=== PATIENT | male | born 1995 | race Caucasian/White ===

== ENCOUNTER 2023-11-30 18:24 | Inpatient (IN) | payer OTHER, SELFPAY ==
[2023-11-30 18:32] VITALS: BP 147/99; PULSE 85; O2SAT 100
[2023-11-30 18:35] VITALS: BP 148/83; PULSE 91; RESP 18; TEMP 36.8; O2SAT 96; BMI 34.5
[2023-11-30 19:56] LABS: MANUAL DIFF FLAG NO
[2023-11-30 19:58] LABS: Basophils Absolute Auto 0.1 X10*3/uL (0.0-0.2); Basophils Percent Auto 0.5 % (0-2); Eosinophils Absolute Auto 0.2 X10*3/uL (0.0-0.4); Eosinophils Percent Auto 1.7 % (0-4); Hematocrit 46.5 % (42.0-52.0); Hemoglobin 15.7 g/dl (14.0-18.0); Imm Gran Abs Auto 0.03 X10*3/uL (0.00-0.03); Imm Gran Pct Auto 0.3 % (0.0-0.4); Lymphocytes Absolute Auto 2.2 X10*3/uL (1.2-4.9); Lymphocytes Percent Auto 23.6 % (20-40); Mean Corpuscular HGB Conc 33.8 g/dl (31.0-36.0); Mean Corpuscular Hemoglobin 28.9 pg (27.0-33.0); Mean Corpuscular Volume 85.5 fL (80.0-98.0); Mean Platelet Volume 11.4 fL (9.4-12.4); Monocytes Absolute Auto 0.7 X10*3/uL (0.1-1.2); Monocytes Percent Auto 7.2 % (2-11); Neutrophils Absolute Auto 6.3 x10*3/uL (2.0-8.3); Neutrophils Percent Auto 66.7 % (45-73); Platelet Count 276 X10*3/uL (160-400); Red Blood Count 5.44 X10*6/uL (4.60-5.80); White Blood Count 9.5 X10*3/uL (4.8-10.8)
[2023-11-30 19:59] LABS: Appearance Urine Clear; Color Urine Yellow; Glucose Urine UA Negative (Negative); Leukocyte Esterase Urine Negative (Negative); Nitrite Urine Negative (Negative); Specific Gravity - Urine 1.015 (1.005-1.025); Urine Blood Negative (Negative); Urine Ketones Negative (Negative); Urine Protein Negative (Neg-Trace)
[2023-11-30 20:07] LABS: Amphetamine Screen Urine Not Detected (Not Detect); Barbiturates, Urine Not Detected (Not Detect); Benzodiazepines Screen Urine Not Detected (Not Detect); Cannabinoid Screen Urine Not Detected (Not Detect); Cocaine Screen Urine Not Detected (Not Detect); Fentanyl, urine Not Detected (Not Detect); Opiate Screen Urine Not Detected (Not Detect); Phencyclidine Screen Urine Not Detected (Not Detect)
[2023-11-30 20:11] LABS: Alanine Aminotransferase 36 U/L (0-40); Albumin Level 4.2 g/dL (3.5-5.0); Alkaline Phosphatase 46 U/L (39-117); Anion Gap 13 (12-20); Aspartate Amino Transferase 23 U/L (5-37); Bilirubin Total 0.5 mg/dL (0.0-1.0); Blood Urea Nitrogen 15 mg/dL (9-16); Calcium 9.4 mg/dL (8.4-10.2); Carbon Dioxide 29 mmol/L (22-29); Chloride 101 mmol/L (96-108); Creatinine Clr Calc Pharmacy 124.7; Estimated Glomerular Filt Rate > 60; Ethanol < 10 mg/dL; Glucose Random 89 mg/dL (60-115); Potassium 3.9 mmol/L (3.3-5.1); Sodium 139 mmol/L (135-145); Total Protein 7.5 g/dL (6.5-8.0)
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
[2023-11-30 22:08] VITALS: BP 127/71; PULSE 74; RESP 16; TEMP 36.6; O2SAT 98
--- NOTE | 2023-11-30 23:26 | PC.NURSE ---
nicotine patch and ativan offered, pt declines at this time.
--- NOTE | 2023-12-01 03:54 | PC.NURSE ---
Assumed care for pt. Pt sleeping at the bedside. No apparent distress noted. Breaths are even regular and unlabored with equal chest rises. Plan of care is ongoing.
[2023-12-01 04:12] VITALS: BP 114/61; PULSE 72; RESP 16; TEMP 36.8; O2SAT 95
--- NOTE | 2023-12-01 07:49 | PC.NURSE ---
Alert and responsive, oob standing next to bed, denies pain or discomfort
--- NOTE | 2023-12-01 07:53 | PC.NURSE ---
Denies SI/HI
[2023-12-01 07:55] VITALS: BP 135/72; PULSE 82; RESP 18; TEMP 36.8; O2SAT 96
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
--- NOTE | 2023-12-01 10:23 | PC.NURSE ---
Assumed care of pt from previous RN, pt sitting at the end of the stretcher. Awaiting CARE team eval.
[2023-12-01] MEDS: hydrOXYzine HCL 50 MG TABLET PO (13:10)
--- NOTE | 2023-12-01 13:23 | PC.NURSE ---
Pt agreeable to taking atarax and staying for admission.
[2023-12-01 13:56] LABS: COVID-19 Test Negative (Negative); IDNOW Serial# 9DB6401D
--- NOTE | 2023-12-01 14:20 | PC.NURSE ---
Report given to Renita STANFORD in POD.
[2023-12-01 15:01] VITALS: RESP 14
--- NOTE | 2023-12-01 15:52 | MHC.EDTECH ---
BELONGINGS MOVED FROM LOCKER #11 TO #5
--- NOTE | 2023-12-01 17:22 | PC.NURSE ---
RE: med rec This RN completed medication rec, patient verbalizes that he is no longer prescribed any medications
--- NOTE | 2023-12-01 17:23 | PC.NURSE ---
Pt moved from ED 6H to 5, patient has been calm and cooperative while in the pod. Offering no complaints to this RN, unwilling to engage in extensive conversation. Now sleeping, respirations even and unlabored, skin pwd, no apparent distress
[2023-12-01 20:29] VITALS: RESP 14
--- NOTE | 2023-12-01 20:30 | PC.NURSE ---
Pt took a hour long nap, then ate dinner. Now ambulating independently throughout BH pod, offering no complaints to this RN
[2023-12-01 23:34] VITALS: BP 123/80; PULSE 74; TEMP 36.6; O2SAT 96
[2023-12-02 09:01] VITALS: BP 108/53; PULSE 78; RESP 16; TEMP 36.6; O2SAT 98
--- NOTE | 2023-12-02 12:44 | PC.NURSE ---
Assumed care of patient at 1100, patient is ambulating with steady gait around BH pod without issue. Occasionally conversing with other patients and staff members. Calm and cooperative, appropriate behavior without issue. pt verbalizes understanding of plan of care. Continue plan for IPLOC
--- NOTE | 2023-12-02 12:52 | MHC.CARE ---
CARE Team faxed letter to [place] [address] [place], with Pts verbal consent as Pt has a court date 12/03/23
[2023-12-02 14:15] VITALS: BP 118/79; PULSE 92; TEMP 36.7; O2SAT 92
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
--- NOTE | 2023-12-02 15:51 | PC.NURSE ---
Pt refused flu vaccine & tobacco screening at this time
[2023-12-02 19:45] VITALS: BP 122/67; PULSE 81; RESP 16; TEMP 36.9; O2SAT 96
[2023-12-03 07:46] VITALS: BMI 33.1
[2023-12-03 07:50] VITALS: BP 125/71; PULSE 76; RESP 18; TEMP 36.1; O2SAT 97
[2023-12-03 08:21] LABS: Estimated Average Glucose 94 mg/dL; Hemoglobin A1c % 4.9 % (<6.0)
[2023-12-03 08:34] LABS: Cholesterol 143 mg/dL (<200); HDL Cholesterol 32 mg/dL (>40); LDL Cholesterol Calculated 86 mg/dL (<100); Triglycerides 126 mg/dL (<150)
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
[2023-12-03 08:51] LABS: Free T4 (Free Thyroxine) 1.13 ng/dL (0.71-1.85); Thyroid Stimulating Hormone 0.91 uIU/mL (0.32-4.0)
[2023-12-03 09:04] LABS: Folate 8.6 ng/mL (> or = 4.0); Vitamin B12 402 pg/mL (200-900)
[2023-12-03 19:45] VITALS: BP 137/88; PULSE 95; RESP 18; TEMP 36.4; O2SAT 98
[2023-12-04 07:00] VITALS: BMI 33.3
[2023-12-04 07:35] VITALS: BP 111/57; PULSE 74; RESP 16; TEMP 36.6; O2SAT 97
[2023-12-04] MEDS: hydrOXYzine HCL 25 MG TABLET PO (14:29)
--- NOTE | 2023-12-04 15:33 | HO.PSYCHPN ---
Subjective Subjective Date of Service: 12/04/23 Reason For Visit: psychosis Interim History: calm, cooperative. superficially normal MSE. interested in therapy referral. asked who MD was at end of interview and shook MD's hand, saying nice to meet you, despite the fact that we met yesterday and spent a substantial amount of time together. per staff, flat/withdrawn. guarded. social with female peer, redirected away from her due to boundary crossings. Mental Status Exam Mental Status Exam Narrative: calm, cooperative. adequately dressed and groomed. no PMA/PMR. speech nml rate, amount, loudness, latency. thoughts superficially linear. affect flexible, normo-intense, non-labile. mood steady. positive. good. no SI/SIBI/HI/AVH expressed. Diagnostics Vital Signs (24Hr): Vital Signs - 24 hr 12/03/23 19:45 12/04/23 07:35 Temperature 97.6 F 98 F Pulse Rate 95 74 Respiratory Rate 18 16 Blood Pressure 137/88 111/57 L Pulse Oximetry 98 97 Oxygen Delivery Method Room Air Room Air BMI result Body Mass Index 33.3 Labs 11/30/23 19:52 11/30/23 19:52 Labs: Laboratory Results - last 48 hr 12/03/23 08:04 Estimat Average Glucose 94 Hemoglobin A1c % 4.9 Triglycerides 126 Cholesterol 143 LDL Cholesterol, Calc 86 HDL Cholesterol 32 L Vitamin B12 402 Folate 8.6 TSH 0.91 Free T4 1.13 Medications Medications Current Medications Acetaminophen (Acetaminophen 325 Mg Tablet) 650 mg PO Q6H PRN PRN Reason: Headache/Pain Mild Scale (1-3) Al Hydroxide/Mg Hydroxide (Magnesium Hydrox/Alum Hydrox 30 Ml Oral.Susp) 30 ml PO Q6H PRN PRN Reason: Heartburn/Nausea Hydroxyzine HCl (Hydroxyzine Hcl 25 Mg Tablet) 25 mg PO Q6H PRN PRN Reason: Anxiety Last Admin: 12/04/23 14:29 Dose: 25 mg Magnesium Hydroxide (Milk Of Magnesia 30 Ml Oral.Susp) 30 ml PO DAILY PRN PRN Reason: Constipation Nicotine Polacrilex (Nicotine Polacrilex 2 Mg Gum) 4 mg BUCCAL Q2H PRN PRN Reason: Nicotine Cravings Trazodone HCl (Trazodone Hcl 50 Mg Tablet) 50 mg PO BEDTIME MRX1 PRN PRN Reason: Insomnia Allergies Allergies Allergy/AdvReac Type Severity Reaction Status Date / Time No Known Allergies Allergy Verified 11/30/23 18:52 Assessment & Plan Assessment & Plan (1) Delusions: Status: Acute Code(s): F22 - Delusional disorders Plan appears to have some kind of psychotic disorder, perhaps with bipolar diathesis. declining medications. states he is benefiting from staff contacts and groups. will collect collateral as possible, build rapport for now. Reason for continued inpatient stay Substantial Risk for: inability to function Time Spent With Patient Time: Total time managing care of this patient today ____ minutes.
[2023-12-04 18:00] VITALS: BP 130/57; PULSE 80; RESP 18; TEMP 36.4; O2SAT 97
[2023-12-05 07:35] VITALS: BP 134/73; PULSE 72; RESP 16; TEMP 36.2; O2SAT 99
--- NOTE | 2023-12-05 09:10 | HO.PSYCHPN ---
Subjective Subjective Date of Service: 12/05/23 Reason For Visit: psychosis Subjective Notes: Conditional Voluntary Interim History: Reviewed with . Social with peers. guarded during 1:1. Pt reports feeling pretty good ; pt stated, I'm trying to take thing from here and then implement them into my life. I'm not interested in meds . denies SI/HI. Attending Groups: Yes Review of Systems Constitutional: Reports as per HPI Eyes: Reports as per HPI Reports as per HPI Cardiovascular: Reports as per HPI Respiratory: Reports as per HPI Gastrointestinal: Reports as per HPI Genitourinary: Reports as per HPI Musculoskeletal: Reports as per HPI Skin/Breast: Reports as per HPI Reports as per HPI Psychiatric: Reports as per HPI Endocrine: Reports as per HPI Hematologic/Lymphatic: Reports as per HPI Allergic/Immunologic: Reports as per HPI Mental Status Exam Mental Status Exam Narrative: Pt is alert and oriented; behavior is calm, guarded; dressed in casual attire; mood is described as good ; eye contact appropriate; Speech is normal rate, volume and prosody and not pressured; thought process is organized; Thought content is on tx; denies SI/HI/VH/AH. Diagnostics Vital Signs (24Hr): Vital Signs - 24 hr 12/04/23 18:00 12/05/23 07:35 Temperature 97.5 F 97.2 F Pulse Rate 80 72 Respiratory Rate 18 16 Blood Pressure 130/57 L 134/73 Pulse Oximetry 97 99 Oxygen Delivery Method Room Air Room Air BMI result Body Mass Index 33.3 Labs 11/30/23 19:52 11/30/23 19:52 Medications Medications Current Medications Acetaminophen (Acetaminophen 325 Mg Tablet) 650 mg PO Q6H PRN PRN Reason: Headache/Pain Mild Scale (1-3) Al Hydroxide/Mg Hydroxide (Magnesium Hydrox/Alum Hydrox 30 Ml Oral.Susp) 30 ml PO Q6H PRN PRN Reason: Heartburn/Nausea Hydroxyzine HCl (Hydroxyzine Hcl 25 Mg Tablet) 25 mg PO Q6H PRN PRN Reason: Anxiety Last Admin: 12/04/23 14:29 Dose: 25 mg Magnesium Hydroxide (Milk Of Magnesia 30 Ml Oral.Susp) 30 ml PO DAILY PRN PRN Reason: Constipation Nicotine Polacrilex (Nicotine Polacrilex 2 Mg Gum) 4 mg BUCCAL Q2H PRN PRN Reason: Nicotine Cravings Trazodone HCl (Trazodone Hcl 50 Mg Tablet) 50 mg PO BEDTIME MRX1 PRN PRN Reason: Insomnia Allergies Allergies Allergy/AdvReac Type Severity Reaction Status Date / Time No Known Allergies Allergy Verified 11/30/23 18:52 Assessment & Plan Assessment & Plan (1) Delusions: Status: Acute Code(s): F22 - Delusional disorders Plan appears to have some kind of psychotic disorder, perhaps with bipolar diathesis. declining medications. states he is benefiting from staff contacts and groups. will collect collateral as possible, build rapport for now. 12/05: Social with peers. guarded during 1:1. Pt reports feeling pretty good ; pt stated, I'm trying to take thing from here and then implement them into my life. I'm not interested in meds . denies SI/HI. Patient educated on: diagnosis and medication risk/benefits Informed Consent: understands Reason for continued inpatient stay Substantial Risk for: med/psych decompensation Time Spent With Patient Time: Total time managing care of this patient today _20___ minutes.
[2023-12-05 19:45] VITALS: BP 136/82; PULSE 87; RESP 17; TEMP 36.7; O2SAT 96
[2023-12-06 08:00] VITALS: BP 117/70; PULSE 67; RESP 14; TEMP 35.9; O2SAT 96
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
[2023-12-06 19:25] VITALS: BP 138/83; PULSE 92; RESP 18; TEMP 36.6; O2SAT 98
[2023-12-07 07:10] VITALS: BP 130/70; PULSE 69; RESP 14; TEMP 36.3; O2SAT 98
--- NOTE | 2023-12-07 07:54 | HO.PSYCHPN ---
Subjective Subjective Date of Service: 12/07/23 Reason For Visit: psychosis Subjective Notes: Conditional Voluntary Interim History: Patient was seen and discussed in rounds today. Records and plans were reviewed. He continues to refuse any medications because they have not ?help me before?. He can interact very differently with the same person within a short period of time and have very little insight or understanding of his behaviors. He slept 6 hours. Eating adequately. He continues to be disinterested in medications. Review of Systems Review of Systems Yes all other systems are reviewed and are negative Mental Status Exam Mental Status Exam Patient Appearance: Well Grooomed Patient Orientation: Place, Time and Situation Level of Consciousness: Alert Patient Behavior: Guarded Mood Description: Suspicious Affect Description: Suspicious and Anxious Patient Cognition Impaired: No Ability to Follow Directions: Good Memory Description: Intact Hallucinations: None Delusions: Paranoid Ideation Thought Process: Intact Thought Content: positive for Evasive Depressive Symptoms: Increased Anxiety and Insomnia Judgement: Fair Diagnostics Vital Signs (24Hr): Vital Signs - 24 hr 12/06/23 08:00 12/06/23 19:25 Temperature 96.6 F L 97.8 F Pulse Rate 67 92 Respiratory Rate 14 18 Blood Pressure 117/70 138/83 Pulse Oximetry 96 98 Oxygen Delivery Method Room Air Room Air BMI result Body Mass Index 33.3 Labs 11/30/23 19:52 11/30/23 19:52 Medications Medications Current Medications Acetaminophen (Acetaminophen 325 Mg Tablet) 650 mg PO Q6H PRN PRN Reason: Headache/Pain Mild Scale (1-3) Al Hydroxide/Mg Hydroxide (Magnesium Hydrox/Alum Hydrox 30 Ml Oral.Susp) 30 ml PO Q6H PRN PRN Reason: Heartburn/Nausea Hydroxyzine HCl (Hydroxyzine Hcl 25 Mg Tablet) 25 mg PO Q6H PRN PRN Reason: Anxiety Last Admin: 12/04/23 14:29 Dose: 25 mg Magnesium Hydroxide (Milk Of Magnesia 30 Ml Oral.Susp) 30 ml PO DAILY PRN PRN Reason: Constipation Nicotine Polacrilex (Nicotine Polacrilex 2 Mg Gum) 4 mg BUCCAL Q2H PRN PRN Reason: Nicotine Cravings Trazodone HCl (Trazodone Hcl 50 Mg Tablet) 50 mg PO BEDTIME MRX1 PRN PRN Reason: Insomnia Allergies Allergies Allergy/AdvReac Type Severity Reaction Status Date / Time No Known Allergies Allergy Verified 11/30/23 18:52 Assessment & Plan Assessment & Plan (1) Delusions: Status: Acute Code(s): F22 - Delusional disorders Assessment and Plan: Encourage trial of antipsychotic. Monitor sleep. Monitor interactions in the milieu Plan appears to have some kind of psychotic disorder, perhaps with bipolar diathesis. declining medications. states he is benefiting from staff contacts and groups. will collect collateral as possible, build rapport for now. 12/05: Social with peers. guarded during 1:1. Pt reports feeling pretty good ; pt stated, I'm trying to take thing from here and then implement them into my life. I'm not interested in meds . denies SI/HI. 12/07: Continue current plans and regimen and encouraged about medications which he is closed off to. Patient educated on: medication risk/benefits Reason for continued inpatient stay Substantial Risk for: med/psych decompensation Time Spent With Patient Time: Total time managing care of this patient today ____ minutes.
[2023-12-07 20:50] VITALS: BP 127/77; PULSE 85; RESP 18; TEMP 36.5; O2SAT 96
[2023-12-07] MEDS: hydrOXYzine HCL 25 MG TABLET PO (22:11)
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
[2023-12-08 07:20] VITALS: BP 112/69; PULSE 80; RESP 18; TEMP 36.4; O2SAT 99
[2023-12-08] MEDS: Nicotine Polacrilex 2 MG GUM 4 MG BUCCAL (10:18)
[2023-12-08] MEDS: hydrOXYzine HCL 25 MG TABLET PO (11:02)
--- NOTE | 2023-12-08 16:04 | HO.PSYCHPN ---
Subjective Subjective Date of Service: 12/08/23 Reason For Visit: psychosis Interim History: pt agreed to start meds, after a very long and circuitous conversation. he declined medication when it was offered within about an hour of his agreeing to it. per staff, friday was saying people are trying to kill him. friday agitated and needed redirection from threatening male peers. overheard telling a peer, it's not a threat, it's a promise. feeling people are out to kill him. they're ganging up on me. open to trying medication after discussion with ABDOULAYE Figueroa, with purpose to organize thoughts. threatening to break peoples' arms. slept about 7 hours. Mental Status Exam Mental Status Exam Narrative: calm, cooperative. adequately dressed and groomed. no PMA/PMR. speech nml rate, incr amount, nml loudness, decr latency. thoughts generally vague and tangential. affect flexible, normo-intense, non-labile. mood not assessed. no SI/SIBI/HI/AVH expressed. Diagnostics Vital Signs (24Hr): Vital Signs - 24 hr 12/07/23 20:50 12/08/23 07:20 Temperature 97.7 F 97.5 F Pulse Rate 85 80 Respiratory Rate 18 18 Blood Pressure 127/77 112/69 Pulse Oximetry 96 99 Oxygen Delivery Method Room Air Room Air BMI result Body Mass Index 33.3 Labs 11/30/23 19:52 11/30/23 19:52 Medications Medications Current Medications Acetaminophen (Acetaminophen 325 Mg Tablet) 650 mg PO Q6H PRN PRN Reason: Headache/Pain Mild Scale (1-3) Al Hydroxide/Mg Hydroxide (Magnesium Hydrox/Alum Hydrox 30 Ml Oral.Susp) 30 ml PO Q6H PRN PRN Reason: Heartburn/Nausea Hydroxyzine HCl (Hydroxyzine Hcl 25 Mg Tablet) 25 mg PO Q6H PRN PRN Reason: Anxiety Last Admin: 12/08/23 11:02 Dose: 25 mg Magnesium Hydroxide (Milk Of Magnesia 30 Ml Oral.Susp) 30 ml PO DAILY PRN PRN Reason: Constipation Nicotine Polacrilex (Nicotine Polacrilex 2 Mg Gum) 4 mg BUCCAL Q2H PRN PRN Reason: Nicotine Cravings Last Admin: 12/08/23 10:18 Dose: 4 mg Olanzapine (Olanzapine 10 Mg Tablet) 10 mg PO BEDTIME FRANKIE Trazodone HCl (Trazodone Hcl 50 Mg Tablet) 50 mg PO BEDTIME MRX1 PRN PRN Reason: Insomnia Allergies Allergies Allergy/AdvReac Type Severity Reaction Status Date / Time No Known Allergies Allergy Verified 11/30/23 18:52 Assessment & Plan Assessment & Plan (1) Delusions: Status: Acute Code(s): F22 - Delusional disorders Assessment and Plan: Encourage trial of antipsychotic. Monitor sleep. Monitor interactions in the milieu Plan appears to have some kind of psychotic disorder, perhaps with bipolar diathesis. declining medications. states he is benefiting from staff contacts and groups. will collect collateral as possible, build rapport for now. 12/05: Social with peers. guarded during 1:1. Pt reports feeling pretty good ; pt stated, I'm trying to take thing from here and then implement them into my life. I'm not interested in meds . denies SI/HI. 12/07: Continue current plans and regimen and encouraged about medications which he is closed off to. 12/08: agreed to take meds to help organize thoughts, then declined an hour later claiming the person with whom he'd discussed meds had told him to hold off until tomorrow. olanzapine 10 mg QHS prescribed. remains disorganized and vague. Reason for continued inpatient stay Substantial Risk for: harm to self, harm to others, inability to function and rapid decompensation Time Spent With Patient Time: Total time managing care of this patient today __35__ minutes.
[2023-12-08 19:50] VITALS: BP 103/62; PULSE 85; RESP 16; TEMP 36.5; O2SAT 98
[2023-12-09 08:19] VITALS: BP 125/81; PULSE 78; RESP 16; TEMP 36.5; O2SAT 98
[2023-12-09] MEDS: OLANZapine 2.5 MG TABLET PO (11:23)
--- NOTE | 2023-12-09 14:54 | HO.PSYCHPN ---
Subjective Subjective Date of Service: 12/09/23 Reason For Visit: psychosis Interim History: vague, circumlocutory. paranoid of peers, father. delusional. informed we would be discharging him tomorrow if he were not to engage in pharmacoptherapy, as otherwise we have come to the end of the help we can offer him. per staff, no depression, anx 5. paranoia. attended 1 group yesterday. refused both doses of zyprexa yesterday. slept about 8 hours overnight. Mental Status Exam Mental Status Exam Narrative: calm, cooperative. adequately dressed and groomed. no PMA/PMR. speech nml rate, incr amount, nml loudness, decr latency. thoughts generally vague and tangential, disorganized. affect flexible, normo-intense, non-labile. mood not bad. no SI/SIBI/HI/AVH. Diagnostics Vital Signs (24Hr): Vital Signs - 24 hr 12/08/23 19:50 12/09/23 08:19 Temperature 97.7 F 97.7 F Pulse Rate 85 78 Respiratory Rate 16 16 Blood Pressure 103/62 125/81 Pulse Oximetry 98 98 Oxygen Delivery Method Room Air Room Air BMI result Body Mass Index 33.3 Labs 11/30/23 19:52 11/30/23 19:52 Medications Medications Current Medications Acetaminophen (Acetaminophen 325 Mg Tablet) 650 mg PO Q6H PRN PRN Reason: Headache/Pain Mild Scale (1-3) Al Hydroxide/Mg Hydroxide (Magnesium Hydrox/Alum Hydrox 30 Ml Oral.Susp) 30 ml PO Q6H PRN PRN Reason: Heartburn/Nausea Hydroxyzine HCl (Hydroxyzine Hcl 25 Mg Tablet) 25 mg PO Q6H PRN PRN Reason: Anxiety Last Admin: 12/08/23 11:02 Dose: 25 mg Magnesium Hydroxide (Milk Of Magnesia 30 Ml Oral.Susp) 30 ml PO DAILY PRN PRN Reason: Constipation Nicotine Polacrilex (Nicotine Polacrilex 2 Mg Gum) 4 mg BUCCAL Q2H PRN PRN Reason: Nicotine Cravings Last Admin: 12/08/23 10:18 Dose: 4 mg Olanzapine (Olanzapine 10 Mg Tablet) 10 mg PO BEDTIME FRANKIE Last Admin: 12/08/23 22:23 Dose: Not Given Trazodone HCl (Trazodone Hcl 50 Mg Tablet) 50 mg PO BEDTIME MRX1 PRN PRN Reason: Insomnia Allergies Allergies Allergy/AdvReac Type Severity Reaction Status Date / Time No Known Allergies Allergy Verified 11/30/23 18:52 Assessment & Plan Assessment & Plan (1) Delusions: Status: Acute Code(s): F22 - Delusional disorders Assessment and Plan: Encourage trial of antipsychotic. Monitor sleep. Monitor interactions in the milieu Plan appears to have some kind of psychotic disorder, perhaps with bipolar diathesis. declining medications. states he is benefiting from staff contacts and groups. will collect collateral as possible, build rapport for now. 12/05: Social with peers. guarded during 1:1. Pt reports feeling pretty good ; pt stated, I'm trying to take thing from here and then implement them into my life. I'm not interested in meds . denies SI/HI. 12/07: Continue current plans and regimen and encouraged about medications which he is closed off to. 12/08: agreed to take meds to help organize thoughts, then declined an hour later claiming the person with whom he'd discussed meds had told him to hold off until tomorrow. olanzapine 10 mg QHS prescribed. remains disorganized and vague. 12/09: refused HS zyprexa last night, took zyprexa 2.5 mg this morning. aware of plan to discharge tomorrow if not engaging in pharmacotherapy. no change in presentation. paranoid delusions. Reason for continued inpatient stay Substantial Risk for: inability to function and rapid decompensation Time Spent With Patient Time: Total time managing care of this patient today _35___ minutes.
--- NOTE | 2023-12-09 17:46 | PC.NURSE ---
Pt approached peer Joey and began to posture at peer and stating come here. come try me he later said to TW he is being a pu--y. He and the peer were .
[2023-12-09 20:10] VITALS: RESP 16
[2023-12-09] MEDS: diphenhydrAMINE HCL 50 MG/ML VIAL IM (20:15)
[2023-12-09] MEDS: LORazepam 2 MG/ML VIAL IM (20:15)
[2023-12-09] MEDS: OLANZapine 10 MG VIAL IM (20:15)
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
[2023-12-10 09:49] VITALS: BP 140/95; PULSE 90; RESP 18; TEMP 36.4; O2SAT 97
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
[2023-12-10 20:30] VITALS: BP 134/67; PULSE 95; RESP 16; TEMP 36.6; O2SAT 97
[2023-12-11 07:47] VITALS: BP 135/74; PULSE 85; RESP 16; TEMP 36.9; O2SAT 97
[2023-12-11 10:43] VITALS: BMI 33.6
[2023-12-11] MEDS: LORazepam 1 MG TABLET PO (11:36)
[2023-12-11] MEDS: OLANZapine ODT 10 MG TAB.RAPDIS TRANSLINGU (12:27)
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
[2023-12-11 20:30] VITALS: BP 122/70; PULSE 104; RESP 14; TEMP 36.5; O2SAT 97
[2023-12-12] MEDS: OLANZapine ODT 10 MG TAB.RAPDIS 20 MG TRANSLINGU (12:18)
[2023-12-12 13:33] VITALS: BP 127/64; PULSE 88; RESP 16; TEMP 37; O2SAT 96
--- NOTE | 2023-12-12 13:56 | ECG_ITS ---
Test Reason : C/O PALPITATIONS Blood Pressure : / mmHG Vent. Rate : 071 BPM Atrial Rate : 071 BPM P-R Int : 164 ms QRS Dur : 084 ms QT Int : 360 ms P-R-T Axes : 046 079 053 degrees QTc Int : 391 ms Normal sinus rhythm Normal ECG No previous ECGs available Referred By: Zeke Harris Electronically Signed By:Ventura Aranda
--- NOTE | 2023-12-12 14:01 | HO.PSYCHPN ---
Subjective Subjective Date of Service: 12/12/23 Reason For Visit: psychosis Interim History: reactive, alleging nursing staff did not offer medication at HS last night. asks if this is what we do to everyone, not offer them medications and then take them to court because they are not taking medications. MD offers to change order to be given now, and pt accepts. per staff, court next . attending groups. refused HS meds last night. slept about 6 hours overnight. Mental Status Exam Mental Status Exam Narrative: reactive, not cooperative. adequately dressed and groomed. no PMA/PMR. speech incr rate, nml amount, nml loudness, decr latency. thoughts with paranoid delusions. affect constricted, hyper-intense, mod-labile. mood not assessed. no SI/SIBI/HI/AVH expressed. Diagnostics Vital Signs (24Hr): Vital Signs - 24 hr 12/11/23 20:30 12/12/23 13:33 Temperature 97.7 F 98.6 F Pulse Rate 104 H 88 Respiratory Rate 14 16 Blood Pressure 122/70 127/64 Pulse Oximetry 97 96 Oxygen Delivery Method Room Air Room Air BMI result Body Mass Index 33.6 Labs 11/30/23 19:52 11/30/23 19:52 Medications Medications Current Medications Acetaminophen (Acetaminophen 325 Mg Tablet) 650 mg PO Q6H PRN PRN Reason: Headache/Pain Mild Scale (1-3) Al Hydroxide/Mg Hydroxide (Magnesium Hydrox/Alum Hydrox 30 Ml Oral.Susp) 30 ml PO Q6H PRN PRN Reason: Heartburn/Nausea Hydroxyzine HCl (Hydroxyzine Hcl 25 Mg Tablet) 25 mg PO Q6H PRN PRN Reason: Anxiety Last Admin: 12/08/23 11:02 Dose: 25 mg Lorazepam (Lorazepam 1 Mg Tablet) 1 mg PO Q4H PRN PRN Reason: severe agitation Last Admin: 12/11/23 11:36 Dose: 1 mg Magnesium Hydroxide (Milk Of Magnesia 30 Ml Oral.Susp) 30 ml PO DAILY PRN PRN Reason: Constipation Nicotine Polacrilex (Nicotine Polacrilex 2 Mg Gum) 4 mg BUCCAL Q2H PRN PRN Reason: Nicotine Cravings Last Admin: 12/08/23 10:18 Dose: 4 mg Olanzapine (Olanzapine Odt 10 Mg Tab.Rapdis) 10 mg TRANSLINGU Q4H PRN PRN Reason: severe agitation Olanzapine (Olanzapine Odt 10 Mg Tab.Rapdis) 20 mg TRANSLINGU DAILY@1200 FRANKIE Last Admin: 12/12/23 12:18 Dose: 20 mg Trazodone HCl (Trazodone Hcl 50 Mg Tablet) 50 mg PO BEDTIME MRX1 PRN PRN Reason: Insomnia Allergies Allergies Allergy/AdvReac Type Severity Reaction Status Date / Time No Known Allergies Allergy Verified 11/30/23 18:52 Assessment & Plan Assessment & Plan (1) Delusions: Status: Acute Code(s): F22 - Delusional disorders Assessment and Plan: Encourage trial of antipsychotic. Monitor sleep. Monitor interactions in the milieu Plan appears to have some kind of psychotic disorder, perhaps with bipolar diathesis. declining medications. states he is benefiting from staff contacts and groups. will collect collateral as possible, build rapport for now. 12/05: Social with peers. guarded during 1:1. Pt reports feeling pretty good ; pt stated, I'm trying to take thing from here and then implement them into my life. I'm not interested in meds . denies SI/HI. 12/07: Continue current plans and regimen and encouraged about medications which he is closed off to. 12/08: agreed to take meds to help organize thoughts, then declined an hour later claiming the person with whom he'd discussed meds had told him to hold off until tomorrow. olanzapine 10 mg QHS prescribed. remains disorganized and vague. 12/09: refused HS zyprexa last night, took zyprexa 2.5 mg this morning. aware of plan to discharge tomorrow if not engaging in pharmacotherapy. no change in presentation. paranoid delusions. 12/10: episode of paranoid delusion-driven provocation, escalation, and violence last evening resulting in restraint and IM meds. denies mental illness. CV revoked and moving for commitment. 12/11: filed for commitment. pt angry re filing. took olanzapine 10 mg x 1 NOW. dosing at HS increased to 20 mg. 12/12: declined HS dosing last night. once again alleged HS RNs did not offer medication. agreed to take it now, which he did, and dosing time changed to QNOON. Reason for continued inpatient stay Substantial Risk for: harm to others, inability to function and rapid decompensation Time Spent With Patient Time: Total time managing care of this patient today ____ minutes.
[2023-12-12 14:15] VITALS: BP 150/86; PULSE 103; RESP 16; O2SAT 97
--- NOTE | 2023-12-12 16:01 | HO.PSYCHPN ---
Subjective Subjective Date of Service: 12/12/23 Reason For Visit: psychosis Diagnostics Vital Signs (24Hr): Vital Signs - 24 hr 12/11/23 20:30 12/12/23 13:33 Temperature 97.7 F 98.6 F Pulse Rate 104 H 88 Respiratory Rate 14 16 Blood Pressure 122/70 127/64 Pulse Oximetry 97 96 Oxygen Delivery Method Room Air Room Air BMI result Body Mass Index 33.6 Labs 11/30/23 19:52 11/30/23 19:52 Medications Medications Current Medications Acetaminophen (Acetaminophen 325 Mg Tablet) 650 mg PO Q6H PRN PRN Reason: Headache/Pain Mild Scale (1-3) Al Hydroxide/Mg Hydroxide (Magnesium Hydrox/Alum Hydrox 30 Ml Oral.Susp) 30 ml PO Q6H PRN PRN Reason: Heartburn/Nausea Hydroxyzine HCl (Hydroxyzine Hcl 25 Mg Tablet) 25 mg PO Q6H PRN PRN Reason: Anxiety Last Admin: 12/08/23 11:02 Dose: 25 mg Lorazepam (Lorazepam 1 Mg Tablet) 1 mg PO Q4H PRN PRN Reason: severe agitation Last Admin: 12/11/23 11:36 Dose: 1 mg Magnesium Hydroxide (Milk Of Magnesia 30 Ml Oral.Susp) 30 ml PO DAILY PRN PRN Reason: Constipation Nicotine Polacrilex (Nicotine Polacrilex 2 Mg Gum) 4 mg BUCCAL Q2H PRN PRN Reason: Nicotine Cravings Last Admin: 12/08/23 10:18 Dose: 4 mg Olanzapine (Olanzapine Odt 10 Mg Tab.Rapdis) 10 mg TRANSLINGU Q4H PRN PRN Reason: severe agitation Olanzapine (Olanzapine Odt 10 Mg Tab.Rapdis) 20 mg TRANSLINGU DAILY@1200 FRANKIE Last Admin: 12/12/23 12:18 Dose: 20 mg Trazodone HCl (Trazodone Hcl 50 Mg Tablet) 50 mg PO BEDTIME MRX1 PRN PRN Reason: Insomnia Allergies Allergies Allergy/AdvReac Type Severity Reaction Status Date / Time No Known Allergies Allergy Verified 11/30/23 18:52 Assessment & Plan Assessment & Plan (1) Delusions: Status: Acute Code(s): F22 - Delusional disorders Assessment and Plan: Encourage trial of antipsychotic. Monitor sleep. Monitor interactions in the milieu Plan appears to have some kind of psychotic disorder, perhaps with bipolar diathesis. declining medications. states he is benefiting from staff contacts and groups. will collect collateral as possible, build rapport for now. 12/05: Social with peers. guarded during 1:1. Pt reports feeling pretty good ; pt stated, I'm trying to take thing from here and then implement them into my life. I'm not interested in meds . denies SI/HI. 12/07: Continue current plans and regimen and encouraged about medications which he is closed off to. 12/08: agreed to take meds to help organize thoughts, then declined an hour later claiming the person with whom he'd discussed meds had told him to hold off until tomorrow. olanzapine 10 mg QHS prescribed. remains disorganized and vague. 12/09: refused HS zyprexa last night, took zyprexa 2.5 mg this morning. aware of plan to discharge tomorrow if not engaging in pharmacotherapy. no change in presentation. paranoid delusions. 12/10: episode of paranoid delusion-driven provocation, escalation, and violence last evening resulting in restraint and IM meds. denies mental illness. CV revoked and moving for commitment. 12/11: filed for commitment. pt angry re filing. took olanzapine 10 mg x 1 NOW. dosing at HS increased to 20 mg. 12/12: declined HS dosing last night. once again alleged HS RNs did not offer medication. agreed to take it now, which he did, and dosing time changed to QNOON. Time Spent With Patient Time: Total time managing care of this patient today ____ minutes.
[2023-12-12 19:53] VITALS: BP 124/73; PULSE 104; RESP 16; TEMP 36.4; O2SAT 97
[2023-12-13 08:51] VITALS: BP 142/81; PULSE 86; RESP 18; TEMP 36.2; O2SAT 96
--- NOTE | 2023-12-13 10:54 | HO.PSYCHPN ---
Subjective Subjective Date of Service: 12/13/23 Reason For Visit: psychosis Subjective Notes: Section 7 Interim History: Pt reports he will not take olanzapine because he reports it is giving him panic attacks. He describes, heart racing, dizziness and passing out which was not observed by nursing. Pt suspect he was given rat poison and questions this leader writer as to who may be producing these medications and whether I can assure him that they are not poisoned. He reports he has very important information that others want. He suspects that one particular peer, is after him and wants his knowledge of current affairs in the world and is going after him. He reports he can't trust anybody, not even his parents who he is now questioning if they are his true biological parents. Review of Systems Review of Systems Constitutional : No Fever, No Chills ENT/Mouth : No Ear Pain, No Nasal Congestion, No sore throat Eyes: No Eye Pain, No Swelling, No Redness Cardiovascular : No Chest Pain, No SOB Respiratory : No Cough, No Sputum, No Dyspnea Gastrointestinal : No Nausea, No Vomiting, No Diarrhea, No Hematochezia, No Melena Genitourinary : No Dysuria, No Urinary Frequency, No Hematuria Musculoskeletal : No Myalgias Skin : No Skin Lesions, No rash Neuro : No Weakness, No Numbness, No Paresthesias, No Dizziness, No Headache Psych : positive Anxiety, positive Depression, no SI/HI All other systems reviewed and are negative Yes all other systems are reviewed and are negative Constitutional: Reports as per HPI Eyes: Reports as per HPI Reports as per HPI Cardiovascular: Reports as per HPI Respiratory: Reports as per HPI Gastrointestinal: Reports as per HPI Genitourinary: Reports as per HPI Musculoskeletal: Reports as per HPI Skin/Breast: Reports as per HPI Reports as per HPI Psychiatric: Reports as per HPI Endocrine: Reports as per HPI Hematologic/Lymphatic: Reports as per HPI Allergic/Immunologic: Reports as per HPI Mental Status Exam Mental Status Exam Patient Appearance: Well Grooomed Patient Orientation: Place, Time and Situation Level of Consciousness: Alert Patient Behavior: Guarded Mood Description: Suspicious Affect Description: Suspicious and Anxious Patient Cognition Impaired: No Ability to Follow Directions: Good Memory Description: Intact Diagnostics Vital Signs (24Hr): Vital Signs - 24 hr 12/12/23 13:33 12/12/23 14:15 12/12/23 19:53 Temperature 98.6 F 97.5 F Pulse Rate 88 103 H 104 H Respiratory Rate 16 16 16 Blood Pressure 127/64 150/86 H 124/73 Pulse Oximetry 96 97 97 Oxygen Delivery Method Room Air Room Air Room Air 12/13/23 08:51 Temperature 97.2 F Pulse Rate 86 Respiratory Rate 18 Blood Pressure 142/81 H Pulse Oximetry 96 Oxygen Delivery Method Room Air BMI result Body Mass Index 33.6 Labs 11/30/23 19:52 11/30/23 19:52 Medications Medications Current Medications Acetaminophen (Acetaminophen 325 Mg Tablet) 650 mg PO Q6H PRN PRN Reason: Headache/Pain Mild Scale (1-3) Al Hydroxide/Mg Hydroxide (Magnesium Hydrox/Alum Hydrox 30 Ml Oral.Susp) 30 ml PO Q6H PRN PRN Reason: Heartburn/Nausea Hydroxyzine HCl (Hydroxyzine Hcl 25 Mg Tablet) 25 mg PO Q6H PRN PRN Reason: Anxiety Last Admin: 12/08/23 11:02 Dose: 25 mg Lorazepam (Lorazepam 1 Mg Tablet) 1 mg PO Q4H PRN PRN Reason: severe agitation Last Admin: 12/11/23 11:36 Dose: 1 mg Magnesium Hydroxide (Milk Of Magnesia 30 Ml Oral.Susp) 30 ml PO DAILY PRN PRN Reason: Constipation Nicotine Polacrilex (Nicotine Polacrilex 2 Mg Gum) 4 mg BUCCAL Q2H PRN PRN Reason: Nicotine Cravings Last Admin: 12/08/23 10:18 Dose: 4 mg Olanzapine (Olanzapine Odt 10 Mg Tab.Rapdis) 10 mg TRANSLINGU Q4H PRN PRN Reason: severe agitation Olanzapine (Olanzapine Odt 10 Mg Tab.Rapdis) 20 mg TRANSLINGU DAILY@1200 FRANKIE Last Admin: 12/12/23 12:18 Dose: 20 mg Trazodone HCl (Trazodone Hcl 50 Mg Tablet) 50 mg PO BEDTIME MRX1 PRN PRN Reason: Insomnia Allergies Allergies Allergy/AdvReac Type Severity Reaction Status Date / Time No Known Allergies Allergy Verified 11/30/23 18:52 Assessment & Plan Assessment & Plan (1) Delusions: Status: Acute Code(s): F22 - Delusional disorders Plan continue tx.refuses oral zyprexa or any other antipsychotic Reason for continued inpatient stay Substantial Risk for: inability to function Time Spent With Patient Time: Total time managing care of this patient today ____ minutes.
[2023-12-13 19:16] VITALS: BP 136/75; PULSE 102; RESP 18; TEMP 36.8; O2SAT 97
[2023-12-14 06:00] VITALS: BP 134/77; PULSE 74; RESP 16; TEMP 36.1; O2SAT 99
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
[2023-12-14 19:35] VITALS: BP 149/77; PULSE 90; RESP 16; TEMP 36.6; O2SAT 96
[2023-12-15 08:57] VITALS: BP 122/76; PULSE 92; RESP 16; TEMP 36.7; O2SAT 95
[2023-12-15 20:00] VITALS: BP 158/90; PULSE 97; RESP 16; TEMP 36.3; O2SAT 100
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
[2023-12-16 07:45] VITALS: BP 130/59; PULSE 68; RESP 16; TEMP 36.6; O2SAT 97
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
[2023-12-16 20:40] VITALS: BP 121/79; PULSE 97; RESP 14; TEMP 36.8; O2SAT 96
[2023-12-17 07:39] VITALS: BP 128/72; PULSE 82; RESP 18; TEMP 36.2; O2SAT 97
--- NOTE | 2023-12-17 13:52 | HO.PSYCHPN ---
Subjective Subjective Date of Service: 12/17/23 Reason For Visit: psychosis Interim History: calm, cooperative. remains with paranoid delusions regarding his parents, denies any mental illness or use for medications. ends interview saying he is just going to get upset continuing to speak with me because i am telling him he is mentally ill while he believes he is not. per staff, dep 2/anx 2. visible, eating. refusing medications. playing cards with peers. Mental Status Exam Mental Status Exam Narrative: calm, cooperative. adequately dressed and groomed. no PMA/PMR. speech nml rate, incr amount, nml loudness, decr latency. thoughts less vague and tangential than before, but still notably imprecise and non-linear. affect constricted, normo-intense, min-labile. mood not assessed. no SI/SIBI/HI/AVH expressed. Diagnostics Vital Signs (24Hr): Vital Signs - 24 hr 12/16/23 20:40 12/17/23 07:39 Temperature 98.2 F 97.2 F Pulse Rate 97 82 Respiratory Rate 14 18 Blood Pressure 121/79 128/72 Pulse Oximetry 96 97 Oxygen Delivery Method Room Air Room Air BMI result Body Mass Index 33.6 Labs 11/30/23 19:52 11/30/23 19:52 Medications Medications Current Medications Acetaminophen (Acetaminophen 325 Mg Tablet) 650 mg PO Q6H PRN PRN Reason: Headache/Pain Mild Scale (1-3) Al Hydroxide/Mg Hydroxide (Magnesium Hydrox/Alum Hydrox 30 Ml Oral.Susp) 30 ml PO Q6H PRN PRN Reason: Heartburn/Nausea Hydroxyzine HCl (Hydroxyzine Hcl 25 Mg Tablet) 25 mg PO Q6H PRN PRN Reason: Anxiety Last Admin: 12/08/23 11:02 Dose: 25 mg Lorazepam (Lorazepam 1 Mg Tablet) 1 mg PO Q4H PRN PRN Reason: severe agitation Last Admin: 12/11/23 11:36 Dose: 1 mg Magnesium Hydroxide (Milk Of Magnesia 30 Ml Oral.Susp) 30 ml PO DAILY PRN PRN Reason: Constipation Nicotine Polacrilex (Nicotine Polacrilex 2 Mg Gum) 4 mg BUCCAL Q2H PRN PRN Reason: Nicotine Cravings Last Admin: 12/08/23 10:18 Dose: 4 mg Olanzapine (Olanzapine Odt 10 Mg Tab.Rapdis) 10 mg TRANSLINGU Q4H PRN PRN Reason: severe agitation Olanzapine (Olanzapine Odt 10 Mg Tab.Rapdis) 20 mg TRANSLINGU DAILY@1200 FRANKIE Last Admin: 12/17/23 12:17 Dose: Not Given Trazodone HCl (Trazodone Hcl 50 Mg Tablet) 50 mg PO BEDTIME MRX1 PRN PRN Reason: Insomnia Allergies Allergies Allergy/AdvReac Type Severity Reaction Status Date / Time No Known Allergies Allergy Verified 11/30/23 18:52 Assessment & Plan Assessment & Plan (1) Schizophrenia: Status: Acute Code(s): F20.9 - Schizophrenia, unspecified Plan appears to have some kind of psychotic disorder, perhaps with bipolar diathesis. declining medications. states he is benefiting from staff contacts and groups. will collect collateral as possible, build rapport for now. 12/05: Social with peers. guarded during 1:1. Pt reports feeling pretty good ; pt stated, I'm trying to take thing from here and then implement them into my life. I'm not interested in meds . denies SI/HI. 12/07: Continue current plans and regimen and encouraged about medications which he is closed off to. 12/08: agreed to take meds to help organize thoughts, then declined an hour later claiming the person with whom he'd discussed meds had told him to hold off until tomorrow. olanzapine 10 mg QHS prescribed. remains disorganized and vague. 12/09: refused HS zyprexa last night, took zyprexa 2.5 mg this morning. aware of plan to discharge tomorrow if not engaging in pharmacotherapy. no change in presentation. paranoid delusions. 12/10: episode of paranoid delusion-driven provocation, escalation, and violence last evening resulting in restraint and IM meds. denies mental illness. CV revoked and moving for commitment. 12/11: filed for commitment. pt angry re filing. took olanzapine 10 mg x 1 NOW. dosing at HS increased to 20 mg. 12/12: declined HS dosing last night. once again alleged HS RNs did not offer medication. agreed to take it now, which he did, and dosing time changed to QNOON. 12/13-12/15: refusing antipsychotics. no provocative behaviors noted. 12/16: refusing antipsychotics. appears able to refrain from antagonizing peers and feeling less strongly re his paranoid delusions. he did get zyprexa 2.5 mg PO and 10 mg IM on 12/09; zyprexa 10 mg PO on 12/11; and zyprexa 20 mg PO on 12/12. these modest doses of antipsychotic in close succession in recent days appear to have ameliorated pt's Sx somewhat. court . 12/17: refusing meds, Sx as yesterday. denies mental illness or utility of medications for him. court tomorrow. continue to offer medication. Reason for continued inpatient stay Substantial Risk for: harm to self, harm to others, inability to function and rapid decompensation Time Spent With Patient Time: Total time managing care of this patient today __25__ minutes.
[2023-12-17 19:50] VITALS: BP 135/77; PULSE 92; RESP 16; TEMP 36.5; O2SAT 97
[2023-12-18 06:00] VITALS: BP 133/85; PULSE 80; RESP 16; TEMP 36.5; O2SAT 100
[2023-12-18 07:00] VITALS: BMI 34.4
[2023-12-18 19:57] VITALS: BP 143/78; PULSE 84; RESP 16; TEMP 36.7; O2SAT 95
[2023-12-18] MEDS: Nicotine Polacrilex 2 MG GUM 4 MG BUCCAL (20:23)
--- NOTE | 2023-12-18 22:25 | HO.PSYCHPN ---
Subjective Subjective Date of Service: 12/18/23 Reason For Visit: psychosis Subjective Notes: Section 7 Interim History: Pt fired court appointed corporate associate attorney. He states he does not trust her. He continues to report that he has knowledge that others can to obtain from him and that he has to protect some people, same way that he has to protect from those who are trying to kill him. He continues to report that medications are rat poisoning. At some point, yelling at this typewriter ribbon winder that he can't trust anyone and that medications will be forced on him. Review of Systems Review of Systems Constitutional : No Fever, No Chills ENT/Mouth : No Ear Pain, No Nasal Congestion, No sore throat Eyes: No Eye Pain, No Swelling, No Redness Cardiovascular : No Chest Pain, No SOB Respiratory : No Cough, No Sputum, No Dyspnea Gastrointestinal : No Nausea, No Vomiting, No Diarrhea, No Hematochezia, No Melena Genitourinary : No Dysuria, No Urinary Frequency, No Hematuria Musculoskeletal : No Myalgias Skin : No Skin Lesions, No rash Neuro : No Weakness, No Numbness, No Paresthesias, No Dizziness, No Headache Psych : positive Anxiety, positive Depression, no SI/HI All other systems reviewed and are negative Yes all other systems are reviewed and are negative Constitutional: Reports as per HPI Eyes: Reports as per HPI Reports as per HPI Cardiovascular: Reports as per HPI Respiratory: Reports as per HPI Gastrointestinal: Reports as per HPI Genitourinary: Reports as per HPI Musculoskeletal: Reports as per HPI Skin/Breast: Reports as per HPI Reports as per HPI Psychiatric: Reports as per HPI Endocrine: Reports as per HPI Hematologic/Lymphatic: Reports as per HPI Allergic/Immunologic: Reports as per HPI Mental Status Exam Mental Status Exam Narrative: calm, cooperative. adequately dressed and groomed. no PMA/PMR. speech nml rate, incr amount, nml loudness, decr latency. thoughts less vague and tangential than before, but still notably imprecise and non-linear. affect constricted, normo-intense, min-labile. mood not assessed. no SI/SIBI/HI/AVH expressed. Diagnostics Vital Signs (24Hr): Vital Signs - 24 hr 12/18/23 06:00 Temperature 97.7 F Pulse Rate 80 Respiratory Rate 16 Blood Pressure 133/85 Pulse Oximetry 100 Oxygen Delivery Method Room Air BMI result Body Mass Index 34.4 Labs 11/30/23 19:52 11/30/23 19:52 Medications Medications Current Medications Acetaminophen (Acetaminophen 325 Mg Tablet) 650 mg PO Q6H PRN PRN Reason: Headache/Pain Mild Scale (1-3) Al Hydroxide/Mg Hydroxide (Magnesium Hydrox/Alum Hydrox 30 Ml Oral.Susp) 30 ml PO Q6H PRN PRN Reason: Heartburn/Nausea Hydroxyzine HCl (Hydroxyzine Hcl 25 Mg Tablet) 25 mg PO Q6H PRN PRN Reason: Anxiety Last Admin: 12/08/23 11:02 Dose: 25 mg Lorazepam (Lorazepam 1 Mg Tablet) 1 mg PO Q4H PRN PRN Reason: severe agitation Last Admin: 12/11/23 11:36 Dose: 1 mg Magnesium Hydroxide (Milk Of Magnesia 30 Ml Oral.Susp) 30 ml PO DAILY PRN PRN Reason: Constipation Nicotine Polacrilex (Nicotine Polacrilex 2 Mg Gum) 4 mg BUCCAL Q2H PRN PRN Reason: Nicotine Cravings Last Admin: 12/18/23 20:23 Dose: 4 mg Olanzapine (Olanzapine Odt 10 Mg Tab.Rapdis) 10 mg TRANSLINGU Q4H PRN PRN Reason: severe agitation Olanzapine (Olanzapine Odt 10 Mg Tab.Rapdis) 20 mg TRANSLINGU DAILY@1200 FRANKIE Last Admin: 12/18/23 14:52 Dose: Not Given Trazodone HCl (Trazodone Hcl 50 Mg Tablet) 50 mg PO BEDTIME MRX1 PRN PRN Reason: Insomnia Allergies Allergies Allergy/AdvReac Type Severity Reaction Status Date / Time No Known Allergies Allergy Verified 11/30/23 18:52 Assessment & Plan Assessment & Plan (1) Schizophrenia: Status: Acute Code(s): F20.9 - Schizophrenia, unspecified Plan appears to have some kind of psychotic disorder, perhaps with bipolar diathesis. declining medications. states he is benefiting from staff contacts and groups. will collect collateral as possible, build rapport for now. 12/05: Social with peers. guarded during 1:1. Pt reports feeling pretty good ; pt stated, I'm trying to take thing from here and then implement them into my life. I'm not interested in meds . denies SI/HI. 12/07: Continue current plans and regimen and encouraged about medications which he is closed off to. 12/08: agreed to take meds to help organize thoughts, then declined an hour later claiming the person with whom he'd discussed meds had told him to hold off until tomorrow. olanzapine 10 mg QHS prescribed. remains disorganized and vague. 12/09: refused HS zyprexa last night, took zyprexa 2.5 mg this morning. aware of plan to discharge tomorrow if not engaging in pharmacotherapy. no change in presentation. paranoid delusions. 12/10: episode of paranoid delusion-driven provocation, escalation, and violence last evening resulting in restraint and IM meds. denies mental illness. CV revoked and moving for commitment. 12/11: filed for commitment. pt angry re filing. took olanzapine 10 mg x 1 NOW. dosing at HS increased to 20 mg. 12/12: declined HS dosing last night. once again alleged HS RNs did not offer medication. agreed to take it now, which he did, and dosing time changed to QNOON. 12/13-12/15: refusing antipsychotics. no provocative behaviors noted. 12/16: refusing antipsychotics. appears able to refrain from antagonizing peers and feeling less strongly re his paranoid delusions. he did get zyprexa 2.5 mg PO and 10 mg IM on 12/09; zyprexa 10 mg PO on 12/11; and zyprexa 20 mg PO on 12/12. these modest doses of antipsychotic in close succession in recent days appear to have ameliorated pt's Sx somewhat. court . 12/17: refusing meds, Sx as yesterday. denies mental illness or utility of medications for him. court tomorrow. continue to offer medication. 12/18 continue tx. pt declines medications. Reason for continued inpatient stay Substantial Risk for: inability to function Time Spent With Patient Time: Total time managing care of this patient today ____ minutes.
--- NOTE | 2023-12-19 08:53 | P.PNPSI_ITS ---
Subjective Subjective Date of Service: 12/19/23 Reason For Visit: psychosis Subjective Notes: Section 7 Interim History: Pt calm, met with this administrative underwriter. He has been in good behavioral control. He has participated in arts and crafts. He is eating well. He continues to report that he can't trust his parents, states he will be homeless on discharge as he does not feel comfortable returning at parents house. He suspects they were trying to harm him. He denies SI/HI. Still reporting having knowledge to prevent ww3 and protecting the country. Although he states he is trying to protect people, he also reports he can't trust anyone because he thinks they are part of conspiracy of assaulting him or harming him due to his knowledge. still declines medications, does not think he has a mental illness. Review of Systems Review of Systems Constitutional : No Fever, No Chills ENT/Mouth : No Ear Pain, No Nasal Congestion, No sore throat Eyes: No Eye Pain, No Swelling, No Redness Cardiovascular : No Chest Pain, No SOB Respiratory : No Cough, No Sputum, No Dyspnea Gastrointestinal : No Nausea, No Vomiting, No Diarrhea, No Hematochezia, No Melena Genitourinary : No Dysuria, No Urinary Frequency, No Hematuria Musculoskeletal : No Myalgias Skin : No Skin Lesions, No rash Neuro : No Weakness, No Numbness, No Paresthesias, No Dizziness, No Headache Psych : positive Anxiety, positive Depression, no SI/HI All other systems reviewed and are negative Yes all other systems are reviewed and are negative Constitutional: Reports as per HPI Eyes: Reports as per HPI Reports as per HPI Cardiovascular: Reports as per HPI Respiratory: Reports as per HPI Gastrointestinal: Reports as per HPI Genitourinary: Reports as per HPI Musculoskeletal: Reports as per HPI Skin/Breast: Reports as per HPI Reports as per HPI Psychiatric: Reports as per HPI Endocrine: Reports as per HPI Hematologic/Lymphatic: Reports as per HPI Allergic/Immunologic: Reports as per HPI Mental Status Exam Mental Status Exam Narrative: calm, cooperative. adequately dressed and groomed. no PMA/PMR. speech nml rate, incr amount, nml loudness, decr latency. thoughts less vague and tangential than before, but still notably imprecise and non-linear. affect constricted, normo-intense, min-labile. mood not assessed. no SI/SIBI/HI/AVH expressed. Diagnostics Vital Signs (24Hr): Vital Signs - 24 hr 12/18/23 19:57 Temperature 98.0 F Pulse Rate 84 Respiratory Rate 16 Blood Pressure 143/78 H Pulse Oximetry 95 Oxygen Delivery Method Room Air BMI result Body Mass Index 34.4 Labs 11/30/23 19:52 11/30/23 19:52 Medications Medications Current Medications Acetaminophen (Acetaminophen 325 Mg Tablet) 650 mg PO Q6H PRN PRN Reason: Headache/Pain Mild Scale (1-3) Al Hydroxide/Mg Hydroxide (Magnesium Hydrox/Alum Hydrox 30 Ml Oral.Susp) 30 ml PO Q6H PRN PRN Reason: Heartburn/Nausea Hydroxyzine HCl (Hydroxyzine Hcl 25 Mg Tablet) 25 mg PO Q6H PRN PRN Reason: Anxiety Last Admin: 12/08/23 11:02 Dose: 25 mg Lorazepam (Lorazepam 1 Mg Tablet) 1 mg PO Q4H PRN PRN Reason: severe agitation Last Admin: 12/11/23 11:36 Dose: 1 mg Magnesium Hydroxide (Milk Of Magnesia 30 Ml Oral.Susp) 30 ml PO DAILY PRN PRN Reason: Constipation Nicotine Polacrilex (Nicotine Polacrilex 2 Mg Gum) 4 mg BUCCAL Q2H PRN PRN Reason: Nicotine Cravings Last Admin: 12/18/23 20:23 Dose: 4 mg Olanzapine (Olanzapine Odt 10 Mg Tab.Rapdis) 10 mg TRANSLINGU Q4H PRN PRN Reason: severe agitation Olanzapine (Olanzapine Odt 10 Mg Tab.Rapdis) 20 mg TRANSLINGU DAILY@1200 FRANKIE Last Admin: 12/18/23 14:52 Dose: Not Given Trazodone HCl (Trazodone Hcl 50 Mg Tablet) 50 mg PO BEDTIME MRX1 PRN PRN Reason: Insomnia Allergies Allergies Allergy/AdvReac Type Severity Reaction Status Date / Time No Known Allergies Allergy Verified 11/30/23 18:52 Assessment & Plan Assessment & Plan (1) Schizophrenia: Status: Acute Code(s): F20.9 - Schizophrenia, unspecified Plan appears to have some kind of psychotic disorder, perhaps with bipolar diathesis. declining medications. states he is benefiting from staff contacts and groups. will collect collateral as possible, build rapport for now. 12/05: Social with peers. guarded during 1:1. Pt reports feeling pretty good ; pt stated, I'm trying to take thing from here and then implement them into my life. I'm not interested in meds . denies SI/HI. 12/07: Continue current plans and regimen and encouraged about medications which he is closed off to. 12/08: agreed to take meds to help organize thoughts, then declined an hour later claiming the person with whom he'd discussed meds had told him to hold off until tomorrow. olanzapine 10 mg QHS prescribed. remains disorganized and vague. 12/09: refused HS zyprexa last night, took zyprexa 2.5 mg this morning. aware of plan to discharge tomorrow if not engaging in pharmacotherapy. no change in presentation. paranoid delusions. 12/10: episode of paranoid delusion-driven provocation, escalation, and violence last evening resulting in restraint and IM meds. denies mental illness. CV revoked and moving for commitment. 12/11: filed for commitment. pt angry re filing. took olanzapine 10 mg x 1 NOW. dosing at HS increased to 20 mg. 12/12: declined HS dosing last night. once again alleged HS RNs did not offer medication. agreed to take it now, which he did, and dosing time changed to QNOON. 12/13-12/15: refusing antipsychotics. no provocative behaviors noted. 12/16: refusing antipsychotics. appears able to refrain from antagonizing peers and feeling less strongly re his paranoid delusions. he did get zyprexa 2.5 mg PO and 10 mg IM on 12/09; zyprexa 10 mg PO on 12/11; and zyprexa 20 mg PO on 12/12. these modest doses of antipsychotic in close succession in recent days appear to have ameliorated pt's Sx somewhat. court . 12/17: refusing meds, Sx as yesterday. denies mental illness or utility of medications for him. court tomorrow. continue to offer medication. 12/18 continue tx. pt declines medications. 12/19 continue tx. Reason for continued inpatient stay Substantial Risk for: inability to function Time Spent With Patient Time: Total time managing care of this patient today ____ minutes.
[2023-12-19 09:53] VITALS: BP 124/70; PULSE 93; RESP 16; TEMP 36.4; O2SAT 96
--- NOTE | 2023-12-19 12:25 | PC.NURSE ---
Tres declined his noon dose of Zyprexa. We met for our contact meeting and he stated that medication gives me panic attacks. When asked if he would consider other medications he stated, Honestly, I don't want or need any medication. I'm fine. He was unable to identify reasons why others may think he needs medication. I'm not angry, I'm not bothering anybody. I'm fine. 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 She was biased. He did not realize court would be postponed x 2 weeks. I informed Tres that his mother made an appointment to see him this afternoon. He states he will call his mother and cancel the visit. I'm done with them. I will call her so she doesn't drive all the way out here. I don't plan to accept any visits from my parents. Tres was calm and respectful during our interaction. He denies ideation, plan or intent to harm self or others.
--- NOTE | 2023-12-19 19:11 | PC.NURSE ---
Tres approached this nurse and requested a drug screen. I asked why and initially he said he couldn't tell me. I told him I would ask the provider to order one but for his safety I wanted to know if he was using substances on the unit. He told me he is not intentionally using substances here but, I think the new gurwinder knows too much about me and I think anyone has access to my food really. When asked directly if he thinks someone is putting something in his food or fluids he stated I think the test will show what is happening. Also pt stated, people on the street will just drive up and hand me like 8 burritos and say , 'Tres thank you for all you do for everyone'. People I never met. domonique ordered and sent.
[2023-12-19 19:20] VITALS: BP 133/75; PULSE 95; RESP 18; TEMP 36.6; O2SAT 96
[2023-12-19 19:37] LABS: Amphetamine Screen Urine Not Detected (Not Detect); Barbiturates, Urine Not Detected (Not Detect); Benzodiazepines Screen Urine Not Detected (Not Detect); Cannabinoid Screen Urine Not Detected (Not Detect); Cocaine Screen Urine Not Detected (Not Detect); Fentanyl, urine Not Detected (Not Detect); Opiate Screen Urine Not Detected (Not Detect); Phencyclidine Screen Urine Not Detected (Not Detect)
[2023-12-20 08:10] VITALS: BP 121/63; PULSE 83; RESP 16; TEMP 36.4; O2SAT 93
--- NOTE | 2023-12-20 14:59 | HO.PSYCHPN ---
Subjective Subjective Date of Service: 12/20/23 Reason For Visit: psychosis Interim History: Pt calm, met with this justowriter operator. He has been in good behavioral control. He has participated in arts and crafts. He is eating well. He has not had any agitation. Maintains he ws being targeted by the patient on the unit. He also feels he can't trust his parents. Denies SI/HI/AVH. Declines medications, does not think he has a mental illness. Review of Systems Review of Systems Constitutional : No Fever, No Chills ENT/Mouth : No Ear Pain, No Nasal Congestion, No sore throat Eyes: No Eye Pain, No Swelling, No Redness Cardiovascular : No Chest Pain, No SOB Respiratory : No Cough, No Sputum, No Dyspnea Gastrointestinal : No Nausea, No Vomiting, No Diarrhea, No Hematochezia, No Melena Genitourinary : No Dysuria, No Urinary Frequency, No Hematuria Musculoskeletal : No Myalgias Skin : No Skin Lesions, No rash Neuro : No Weakness, No Numbness, No Paresthesias, No Dizziness, No Headache Psych : positive Anxiety, positive Depression, no SI/HI All other systems reviewed and are negative Yes all other systems are reviewed and are negative Constitutional: Reports as per HPI Eyes: Reports as per HPI Reports as per HPI Cardiovascular: Reports as per HPI Respiratory: Reports as per HPI Gastrointestinal: Reports as per HPI Genitourinary: Reports as per HPI Musculoskeletal: Reports as per HPI Skin/Breast: Reports as per HPI Reports as per HPI Psychiatric: Reports as per HPI Endocrine: Reports as per HPI Hematologic/Lymphatic: Reports as per HPI Allergic/Immunologic: Reports as per HPI Mental Status Exam Mental Status Exam Narrative: calm, cooperative. adequately dressed and groomed. no PMA/PMR. speech nml rate, incr amount, nml loudness, decr latency. thoughts less vague and tangential than before, but still notably imprecise and non-linear. affect constricted, normo-intense, min-labile. mood not assessed. no SI/SIBI/HI/AVH expressed. Patient Appearance: Well Grooomed Patient Orientation: Place, Time and Situation Level of Consciousness: Alert Patient Behavior: Guarded Mood Description: Suspicious Affect Description: Suspicious and Anxious Patient Cognition Impaired: No Ability to Follow Directions: Good Memory Description: Intact Diagnostics Vital Signs (24Hr): Vital Signs - 24 hr 12/19/23 19:20 12/20/23 08:10 Temperature 97.9 F 97.5 F Pulse Rate 95 83 Respiratory Rate 18 16 Blood Pressure 133/75 121/63 Pulse Oximetry 96 93 Oxygen Delivery Method Room Air Room Air BMI result Body Mass Index 34.4 Labs 11/30/23 19:52 11/30/23 19:52 Labs: Laboratory Results - last 48 hr 12/19/23 19:20 Urine Opiates Screen Not Detected Urine Fentanyl Screen Not Detected Ur Barbiturates Screen Not Detected Ur Phencyclidine Scrn Not Detected Ur Amphetamines Screen Not Detected U Benzodiazepines Scrn Not Detected Urine Cocaine Screen Not Detected U Marijuana (THC) Screen Not Detected Medications Medications Current Medications Acetaminophen (Acetaminophen 325 Mg Tablet) 650 mg PO Q6H PRN PRN Reason: Headache/Pain Mild Scale (1-3) Al Hydroxide/Mg Hydroxide (Magnesium Hydrox/Alum Hydrox 30 Ml Oral.Susp) 30 ml PO Q6H PRN PRN Reason: Heartburn/Nausea Hydroxyzine HCl (Hydroxyzine Hcl 25 Mg Tablet) 25 mg PO Q6H PRN PRN Reason: Anxiety Last Admin: 12/08/23 11:02 Dose: 25 mg Lorazepam (Lorazepam 1 Mg Tablet) 1 mg PO Q4H PRN PRN Reason: severe agitation Last Admin: 12/11/23 11:36 Dose: 1 mg Magnesium Hydroxide (Milk Of Magnesia 30 Ml Oral.Susp) 30 ml PO DAILY PRN PRN Reason: Constipation Nicotine Polacrilex (Nicotine Polacrilex 2 Mg Gum) 4 mg BUCCAL Q2H PRN PRN Reason: Nicotine Cravings Last Admin: 12/18/23 20:23 Dose: 4 mg Olanzapine (Olanzapine Odt 10 Mg Tab.Rapdis) 10 mg TRANSLINGU Q4H PRN PRN Reason: severe agitation Olanzapine (Olanzapine Odt 10 Mg Tab.Rapdis) 20 mg TRANSLINGU DAILY@1200 FRANKIE Last Admin: 12/20/23 13:20 Dose: Not Given Trazodone HCl (Trazodone Hcl 50 Mg Tablet) 50 mg PO BEDTIME MRX1 PRN PRN Reason: Insomnia Allergies Allergies Allergy/AdvReac Type Severity Reaction Status Date / Time No Known Allergies Allergy Verified 11/30/23 18:52 Assessment & Plan Assessment & Plan (1) Schizophrenia: Status: Acute Code(s): F20.9 - Schizophrenia, unspecified Plan appears to have some kind of psychotic disorder, perhaps with bipolar diathesis. declining medications. states he is benefiting from staff contacts and groups. will collect collateral as possible, build rapport for now. 12/05: Social with peers. guarded during 1:1. Pt reports feeling pretty good ; pt stated, I'm trying to take thing from here and then implement them into my life. I'm not interested in meds . denies SI/HI. 12/07: Continue current plans and regimen and encouraged about medications which he is closed off to. 12/08: agreed to take meds to help organize thoughts, then declined an hour later claiming the person with whom he'd discussed meds had told him to hold off until tomorrow. olanzapine 10 mg QHS prescribed. remains disorganized and vague. 12/09: refused HS zyprexa last night, took zyprexa 2.5 mg this morning. aware of plan to discharge tomorrow if not engaging in pharmacotherapy. no change in presentation. paranoid delusions. 12/10: episode of paranoid delusion-driven provocation, escalation, and violence last evening resulting in restraint and IM meds. denies mental illness. CV revoked and moving for commitment. 12/11: filed for commitment. pt angry re filing. took olanzapine 10 mg x 1 NOW. dosing at HS increased to 20 mg. 12/12: declined HS dosing last night. once again alleged HS RNs did not offer medication. agreed to take it now, which he did, and dosing time changed to QNOON. 12/13-12/15: refusing antipsychotics. no provocative behaviors noted. 12/16: refusing antipsychotics. appears able to refrain from antagonizing peers and feeling less strongly re his paranoid delusions. he did get zyprexa 2.5 mg PO and 10 mg IM on 12/09; zyprexa 10 mg PO on 12/11; and zyprexa 20 mg PO on 12/12. these modest doses of antipsychotic in close succession in recent days appear to have ameliorated pt's Sx somewhat. court . 12/17: refusing meds, Sx as yesterday. denies mental illness or utility of medications for him. court tomorrow. continue to offer medication. 12/18 continue tx. pt declines medications. 12/19 continue tx. 12/20: Continue current management and treatment plan. Reason for continued inpatient stay Substantial Risk for: harm to others and rapid decompensation Time Spent With Patient Time: Total time managing care of this patient today ____ minutes.
[2023-12-20 20:00] VITALS: BP 130/70; PULSE 88; RESP 14; TEMP 36.3; O2SAT 96
[2023-12-21 08:15] VITALS: BP 126/51; PULSE 83; RESP 16; TEMP 36.6; O2SAT 96
--- NOTE | 2023-12-21 14:44 | HO.PSYCHPN ---
Subjective Subjective Date of Service: 12/21/23 Reason For Visit: psychosis Interim History: Pt calm, met with this health technical writer. He has been in good behavioral control. He has participated in arts and crafts. engaged with some peers on the unit. continues guarded and suspicious. was walking into patient room believing the other patient had his clothes. appetite is good. He has not had any agitation. Maintains he was being targeted by the patient on the unit when he poured milk on him. He also feels he can't trust his parents. Denies SI/HI/AVH. Declines medications, does not think he has a mental illness. Review of Systems Review of Systems Constitutional : No Fever, No Chills ENT/Mouth : No Ear Pain, No Nasal Congestion, No sore throat Eyes: No Eye Pain, No Swelling, No Redness Cardiovascular : No Chest Pain, No SOB Respiratory : No Cough, No Sputum, No Dyspnea Gastrointestinal : No Nausea, No Vomiting, No Diarrhea, No Hematochezia, No Melena Genitourinary : No Dysuria, No Urinary Frequency, No Hematuria Musculoskeletal : No Myalgias Skin : No Skin Lesions, No rash Neuro : No Weakness, No Numbness, No Paresthesias, No Dizziness, No Headache Psych : positive Anxiety, positive Depression, no SI/HI All other systems reviewed and are negative Yes all other systems are reviewed and are negative Constitutional: Reports as per HPI Eyes: Reports as per HPI Reports as per HPI Cardiovascular: Reports as per HPI Respiratory: Reports as per HPI Gastrointestinal: Reports as per HPI Genitourinary: Reports as per HPI Musculoskeletal: Reports as per HPI Skin/Breast: Reports as per HPI Reports as per HPI Psychiatric: Reports as per HPI Endocrine: Reports as per HPI Hematologic/Lymphatic: Reports as per HPI Allergic/Immunologic: Reports as per HPI Mental Status Exam Mental Status Exam Narrative: calm, cooperative. adequately dressed and groomed. no PMA/PMR. speech nml rate, incr amount, nml loudness, decr latency. thoughts less vague and tangential than before, but still notably imprecise and non-linear. affect constricted, normo-intense, min-labile. mood not assessed. no SI/SIBI/HI/AVH expressed. Patient Appearance: Well Grooomed Patient Orientation: Place, Time and Situation Level of Consciousness: Alert Patient Behavior: Guarded Mood Description: Suspicious Affect Description: Suspicious and Anxious Patient Cognition Impaired: No Ability to Follow Directions: Good Memory Description: Intact Diagnostics Vital Signs (24Hr): Vital Signs - 24 hr 12/20/23 20:00 12/21/23 08:15 Temperature 97.3 F 97.8 F Pulse Rate 88 83 Respiratory Rate 14 16 Blood Pressure 130/70 126/51 L Pulse Oximetry 96 96 Oxygen Delivery Method Room Air Room Air BMI result Body Mass Index 34.4 Labs 11/30/23 19:52 11/30/23 19:52 Labs: Laboratory Results - last 48 hr 12/19/23 19:20 Urine Opiates Screen Not Detected Urine Fentanyl Screen Not Detected Ur Barbiturates Screen Not Detected Ur Phencyclidine Scrn Not Detected Ur Amphetamines Screen Not Detected U Benzodiazepines Scrn Not Detected Urine Cocaine Screen Not Detected U Marijuana (THC) Screen Not Detected Medications Medications Current Medications Acetaminophen (Acetaminophen 325 Mg Tablet) 650 mg PO Q6H PRN PRN Reason: Headache/Pain Mild Scale (1-3) Al Hydroxide/Mg Hydroxide (Magnesium Hydrox/Alum Hydrox 30 Ml Oral.Susp) 30 ml PO Q6H PRN PRN Reason: Heartburn/Nausea Hydroxyzine HCl (Hydroxyzine Hcl 25 Mg Tablet) 25 mg PO Q6H PRN PRN Reason: Anxiety Last Admin: 12/08/23 11:02 Dose: 25 mg Lorazepam (Lorazepam 1 Mg Tablet) 1 mg PO Q4H PRN PRN Reason: severe agitation Last Admin: 12/11/23 11:36 Dose: 1 mg Magnesium Hydroxide (Milk Of Magnesia 30 Ml Oral.Susp) 30 ml PO DAILY PRN PRN Reason: Constipation Nicotine Polacrilex (Nicotine Polacrilex 2 Mg Gum) 4 mg BUCCAL Q2H PRN PRN Reason: Nicotine Cravings Last Admin: 12/18/23 20:23 Dose: 4 mg Olanzapine (Olanzapine Odt 10 Mg Tab.Rapdis) 10 mg TRANSLINGU Q4H PRN PRN Reason: severe agitation Olanzapine (Olanzapine Odt 10 Mg Tab.Rapdis) 20 mg TRANSLINGU DAILY@1200 FRANKIE Last Admin: 12/21/23 11:24 Dose: Not Given Trazodone HCl (Trazodone Hcl 50 Mg Tablet) 50 mg PO BEDTIME MRX1 PRN PRN Reason: Insomnia Allergies Allergies Allergy/AdvReac Type Severity Reaction Status Date / Time No Known Allergies Allergy Verified 11/30/23 18:52 Assessment & Plan Assessment & Plan (1) Schizophrenia: Status: Acute Code(s): F20.9 - Schizophrenia, unspecified Plan appears to have some kind of psychotic disorder, perhaps with bipolar diathesis. declining medications. states he is benefiting from staff contacts and groups. will collect collateral as possible, build rapport for now. 12/05: Social with peers. guarded during 1:1. Pt reports feeling pretty good ; pt stated, I'm trying to take thing from here and then implement them into my life. I'm not interested in meds . denies SI/HI. 12/07: Continue current plans and regimen and encouraged about medications which he is closed off to. 12/08: agreed to take meds to help organize thoughts, then declined an hour later claiming the person with whom he'd discussed meds had told him to hold off until tomorrow. olanzapine 10 mg QHS prescribed. remains disorganized and vague. 12/09: refused HS zyprexa last night, took zyprexa 2.5 mg this morning. aware of plan to discharge tomorrow if not engaging in pharmacotherapy. no change in presentation. paranoid delusions. 12/10: episode of paranoid delusion-driven provocation, escalation, and violence last evening resulting in restraint and IM meds. denies mental illness. CV revoked and moving for commitment. 12/11: filed for commitment. pt angry re filing. took olanzapine 10 mg x 1 NOW. dosing at HS increased to 20 mg. 12/12: declined HS dosing last night. once again alleged HS RNs did not offer medication. agreed to take it now, which he did, and dosing time changed to QNOON. 12/13-12/15: refusing antipsychotics. no provocative behaviors noted. 12/16: refusing antipsychotics. appears able to refrain from antagonizing peers and feeling less strongly re his paranoid delusions. he did get zyprexa 2.5 mg PO and 10 mg IM on 12/09; zyprexa 10 mg PO on 12/11; and zyprexa 20 mg PO on 12/12. these modest doses of antipsychotic in close succession in recent days appear to have ameliorated pt's Sx somewhat. court . 12/17: refusing meds, Sx as yesterday. denies mental illness or utility of medications for him. court tomorrow. continue to offer medication. 12/18 continue tx. pt declines medications. 12/19 continue tx. 12/20: Continue current management and treatment plan. 12/21: continue current management and treatment plan. Reason for continued inpatient stay Substantial Risk for: harm to others, inability to function and rapid decompensation Time Spent With Patient Time: Total time managing care of this patient today ____ minutes.
[2023-12-21 19:55] VITALS: BP 120/81; PULSE 92; RESP 18; TEMP 36.6; O2SAT 96
[2023-12-22 07:20] VITALS: BP 120/58; PULSE 73; RESP 16; TEMP 36.2; O2SAT 97
--- NOTE | 2023-12-22 15:16 | HO.PSYCHPN ---
Subjective Subjective Date of Service: 12/22/23 Reason For Visit: psychosis Interim History: calm, cooperative. discussed reports that pt had entered peer's room to use his toilet, entered another peer's room accusing him of having stolen his t-shirt, making an inappropriate sexual joke to male peer on peer's way to shower, standing in female peer's doorway for an extended period. stated to staff of his behaviors, i just want to piss people off. MD encouraged pt to demonstrate his ability to control his behavior by refraining from bruising, fracturing, or otherwise breaking unit rules. per staff, flat, irritable, refusing meds. infractions or borderline so behaviors as mentioned above. slept well. Mental Status Exam Mental Status Exam Narrative: calm, cooperative. adequately dressed and groomed. no PMA/PMR. speech nml rate, incr amount, nml loudness, decr latency. thoughts less vague and tangential than before. affect flexible, normo-intense, non-labile. mood not assessed. no SI/SIBI/HI/AVH expressed. Diagnostics Vital Signs (24Hr): Vital Signs - 24 hr 12/21/23 19:55 12/22/23 07:20 Temperature 97.8 F 97.1 F Pulse Rate 92 73 Respiratory Rate 18 16 Blood Pressure 120/81 120/58 L Pulse Oximetry 96 97 Oxygen Delivery Method Room Air Room Air BMI result Body Mass Index 34.4 Labs 11/30/23 19:52 11/30/23 19:52 Medications Medications Current Medications Acetaminophen (Acetaminophen 325 Mg Tablet) 650 mg PO Q6H PRN PRN Reason: Headache/Pain Mild Scale (1-3) Al Hydroxide/Mg Hydroxide (Magnesium Hydrox/Alum Hydrox 30 Ml Oral.Susp) 30 ml PO Q6H PRN PRN Reason: Heartburn/Nausea Hydroxyzine HCl (Hydroxyzine Hcl 25 Mg Tablet) 25 mg PO Q6H PRN PRN Reason: Anxiety Last Admin: 12/08/23 11:02 Dose: 25 mg Lorazepam (Lorazepam 1 Mg Tablet) 1 mg PO Q4H PRN PRN Reason: severe agitation Last Admin: 12/11/23 11:36 Dose: 1 mg Magnesium Hydroxide (Milk Of Magnesia 30 Ml Oral.Susp) 30 ml PO DAILY PRN PRN Reason: Constipation Nicotine Polacrilex (Nicotine Polacrilex 2 Mg Gum) 4 mg BUCCAL Q2H PRN PRN Reason: Nicotine Cravings Last Admin: 12/18/23 20:23 Dose: 4 mg Olanzapine (Olanzapine Odt 10 Mg Tab.Rapdis) 10 mg TRANSLINGU Q4H PRN PRN Reason: severe agitation Olanzapine (Olanzapine Odt 10 Mg Tab.Rapdis) 20 mg TRANSLINGU DAILY@1200 FRANKIE Last Admin: 12/21/23 11:24 Dose: Not Given Trazodone HCl (Trazodone Hcl 50 Mg Tablet) 50 mg PO BEDTIME MRX1 PRN PRN Reason: Insomnia Allergies Allergies Allergy/AdvReac Type Severity Reaction Status Date / Time No Known Allergies Allergy Verified 11/30/23 18:52 Assessment & Plan Assessment & Plan (1) Schizophrenia: Status: Acute Code(s): F20.9 - Schizophrenia, unspecified Plan appears to have some kind of psychotic disorder, perhaps with bipolar diathesis. declining medications. states he is benefiting from staff contacts and groups. will collect collateral as possible, build rapport for now. 12/05: Social with peers. guarded during 1:1. Pt reports feeling pretty good ; pt stated, I'm trying to take thing from here and then implement them into my life. I'm not interested in meds . denies SI/HI. 12/07: Continue current plans and regimen and encouraged about medications which he is closed off to. 12/08: agreed to take meds to help organize thoughts, then declined an hour later claiming the person with whom he'd discussed meds had told him to hold off until tomorrow. olanzapine 10 mg QHS prescribed. remains disorganized and vague. 12/09: refused HS zyprexa last night, took zyprexa 2.5 mg this morning. aware of plan to discharge tomorrow if not engaging in pharmacotherapy. no change in presentation. paranoid delusions. 12/10: episode of paranoid delusion-driven provocation, escalation, and violence last evening resulting in restraint and IM meds. denies mental illness. CV revoked and moving for commitment. 12/11: filed for commitment. pt angry re filing. took olanzapine 10 mg x 1 NOW. dosing at HS increased to 20 mg. 12/12: declined HS dosing last night. once again alleged HS RNs did not offer medication. agreed to take it now, which he did, and dosing time changed to QNOON. 12/13-12/15: refusing antipsychotics. no provocative behaviors noted. 12/16: refusing antipsychotics. appears able to refrain from antagonizing peers and feeling less strongly re his paranoid delusions. he did get zyprexa 2.5 mg PO and 10 mg IM on 12/09; zyprexa 10 mg PO on 12/11; and zyprexa 20 mg PO on 12/12. these modest doses of antipsychotic in close succession in recent days appear to have ameliorated pt's Sx somewhat. court . 12/17: refusing meds, Sx as yesterday. denies mental illness or utility of medications for him. court tomorrow. continue to offer medication. 12/18 continue tx. pt declines medications. 12/19 continue tx. 12/20: Continue current management and treatment plan. 12/21: continue current management and treatment plan. 12/22: continue current mgmt. refusing meds. continues more organized and linear than at admission. over the weekend went into peers' rooms twice, once to use toilet and another time accusing peer of having stolen his shirt. said to staff, i just want to piss people off. hearing rescheduled for 3/. Reason for continued inpatient stay Substantial Risk for: harm to self, harm to others and rapid decompensation Time Spent With Patient Time: Total time managing care of this patient today __25__ minutes.
[2023-12-22 19:25] VITALS: BP 133/63; PULSE 89; RESP 18; TEMP 36.8; O2SAT 96
[2023-12-23 08:56] VITALS: BP 144/71; PULSE 86; RESP 16; TEMP 36.2; O2SAT 98
[2023-12-23] MEDS: hydrOXYzine HCL 25 MG TABLET PO (12:05)
--- NOTE | 2023-12-23 13:18 | HO.PSYCHPN ---
Subjective Subjective Date of Service: 12/23/23 Reason For Visit: psychosis Interim History: calm, cooperative, legalistic. reports he is doing fine, no problems with anything or anyone. says he did not go in anyone else's room last night. per staff, refusing olanzapine. went into 324 without explanation. slept all NOC. Mental Status Exam Mental Status Exam Narrative: calm, cooperative. adequately dressed and groomed. no PMA/PMR. speech nml rate, incr amount, nml loudness, decr latency. thoughts less vague and tangential than before. affect flexible, normo-intense, non-labile. mood not assessed. no SI/SIBI/HI/AVH expressed. Diagnostics Vital Signs (24Hr): Vital Signs - 24 hr 12/22/23 19:25 12/23/23 08:56 Temperature 98.2 F 97.1 F Pulse Rate 89 86 Respiratory Rate 18 16 Blood Pressure 133/63 144/71 H Pulse Oximetry 96 98 Oxygen Delivery Method Room Air Room Air BMI result Body Mass Index 34.4 Labs 11/30/23 19:52 11/30/23 19:52 Medications Medications Current Medications Acetaminophen (Acetaminophen 325 Mg Tablet) 650 mg PO Q6H PRN PRN Reason: Headache/Pain Mild Scale (1-3) Al Hydroxide/Mg Hydroxide (Magnesium Hydrox/Alum Hydrox 30 Ml Oral.Susp) 30 ml PO Q6H PRN PRN Reason: Heartburn/Nausea Hydroxyzine HCl (Hydroxyzine Hcl 25 Mg Tablet) 25 mg PO Q6H PRN PRN Reason: Anxiety Last Admin: 12/23/23 12:05 Dose: 25 mg Lorazepam (Lorazepam 1 Mg Tablet) 1 mg PO Q4H PRN PRN Reason: severe agitation Last Admin: 12/11/23 11:36 Dose: 1 mg Magnesium Hydroxide (Milk Of Magnesia 30 Ml Oral.Susp) 30 ml PO DAILY PRN PRN Reason: Constipation Nicotine Polacrilex (Nicotine Polacrilex 2 Mg Gum) 4 mg BUCCAL Q2H PRN PRN Reason: Nicotine Cravings Last Admin: 12/18/23 20:23 Dose: 4 mg Olanzapine (Olanzapine Odt 10 Mg Tab.Rapdis) 10 mg TRANSLINGU Q4H PRN PRN Reason: severe agitation Olanzapine (Olanzapine Odt 10 Mg Tab.Rapdis) 20 mg TRANSLINGU DAILY@1200 FRANKIE Last Admin: 12/23/23 12:06 Dose: Not Given Trazodone HCl (Trazodone Hcl 50 Mg Tablet) 50 mg PO BEDTIME MRX1 PRN PRN Reason: Insomnia Allergies Allergies Allergy/AdvReac Type Severity Reaction Status Date / Time No Known Allergies Allergy Verified 11/30/23 18:52 Assessment & Plan Assessment & Plan (1) Schizophrenia: Status: Acute Code(s): F20.9 - Schizophrenia, unspecified Plan appears to have some kind of psychotic disorder, perhaps with bipolar diathesis. declining medications. states he is benefiting from staff contacts and groups. will collect collateral as possible, build rapport for now. 12/05: Social with peers. guarded during 1:1. Pt reports feeling pretty good ; pt stated, I'm trying to take thing from here and then implement them into my life. I'm not interested in meds . denies SI/HI. 12/07: Continue current plans and regimen and encouraged about medications which he is closed off to. 12/08: agreed to take meds to help organize thoughts, then declined an hour later claiming the person with whom he'd discussed meds had told him to hold off until tomorrow. olanzapine 10 mg QHS prescribed. remains disorganized and vague. 12/09: refused HS zyprexa last night, took zyprexa 2.5 mg this morning. aware of plan to discharge tomorrow if not engaging in pharmacotherapy. no change in presentation. paranoid delusions. 12/10: episode of paranoid delusion-driven provocation, escalation, and violence last evening resulting in restraint and IM meds. denies mental illness. CV revoked and moving for commitment. 12/11: filed for commitment. pt angry re filing. took olanzapine 10 mg x 1 NOW. dosing at HS increased to 20 mg. 12/12: declined HS dosing last night. once again alleged HS RNs did not offer medication. agreed to take it now, which he did, and dosing time changed to QNOON. 12/13-12/15: refusing antipsychotics. no provocative behaviors noted. 12/16: refusing antipsychotics. appears able to refrain from antagonizing peers and feeling less strongly re his paranoid delusions. he did get zyprexa 2.5 mg PO and 10 mg IM on 12/09; zyprexa 10 mg PO on 12/11; and zyprexa 20 mg PO on 12/12. these modest doses of antipsychotic in close succession in recent days appear to have ameliorated pt's Sx somewhat. court . 12/17: refusing meds, Sx as yesterday. denies mental illness or utility of medications for him. court tomorrow. continue to offer medication. 12/18 continue tx. pt declines medications. 12/19 continue tx. 12/20: Continue current management and treatment plan. 12/21: continue current management and treatment plan. 12/22: continue current mgmt. refusing meds. continues more organized and linear than at admission. over the weekend went into peers' rooms twice, once to use toilet and another time accusing peer of having stolen his shirt. said to staff, i just want to piss people off. hearing rescheduled for 3/. 12/23: calm, cooperative. reportedly went into peer's room last NOC without explanation. otherwise no events. refusing meds. place on CO due to reports of wandering. Reason for continued inpatient stay Substantial Risk for: harm to others, inability to function and rapid decompensation Time Spent With Patient Time: Total time managing care of this patient today __25__ minutes.
[2023-12-23 19:40] VITALS: BP 118/59; PULSE 85; RESP 16; TEMP 36.5; O2SAT 98
--- NOTE | 2023-12-24 13:30 | HO.PSYCHPN ---
Subjective Subjective Date of Service: 12/24/23 Reason For Visit: psychosis Interim History: calm, cooperative. no questions or complaints. informed he will return to Q5 min checks now. talking about discharging to home when he leaves the hospital, says he will discuss with his parents today. per staff, upset and yelling about being on CO days yesterday. had PRN atarax. refusing zyprexa. no wandering on unit overnight. slept about 6 hours. Mental Status Exam Mental Status Exam Narrative: calm, cooperative. adequately dressed and groomed. no PMA/PMR. speech nml rate, incr amount, nml loudness, decr latency. thoughts less vague and tangential than before. affect flexible, normo-intense, non-labile. mood not assessed. no SI/SIBI/HI/AVH expressed. Diagnostics Vital Signs (24Hr): Vital Signs - 24 hr 12/23/23 19:40 Temperature 97.7 F Pulse Rate 85 Respiratory Rate 16 Blood Pressure 118/59 L Pulse Oximetry 98 Oxygen Delivery Method Room Air BMI result Body Mass Index 34.4 Labs 11/30/23 19:52 11/30/23 19:52 Medications Medications Current Medications Acetaminophen (Acetaminophen 325 Mg Tablet) 650 mg PO Q6H PRN PRN Reason: Headache/Pain Mild Scale (1-3) Al Hydroxide/Mg Hydroxide (Magnesium Hydrox/Alum Hydrox 30 Ml Oral.Susp) 30 ml PO Q6H PRN PRN Reason: Heartburn/Nausea Hydroxyzine HCl (Hydroxyzine Hcl 25 Mg Tablet) 25 mg PO Q6H PRN PRN Reason: Anxiety Last Admin: 12/23/23 12:05 Dose: 25 mg Lorazepam (Lorazepam 1 Mg Tablet) 1 mg PO Q4H PRN PRN Reason: severe agitation Last Admin: 12/11/23 11:36 Dose: 1 mg Magnesium Hydroxide (Milk Of Magnesia 30 Ml Oral.Susp) 30 ml PO DAILY PRN PRN Reason: Constipation Nicotine Polacrilex (Nicotine Polacrilex 2 Mg Gum) 4 mg BUCCAL Q2H PRN PRN Reason: Nicotine Cravings Last Admin: 12/18/23 20:23 Dose: 4 mg Olanzapine (Olanzapine Odt 10 Mg Tab.Rapdis) 10 mg TRANSLINGU Q4H PRN PRN Reason: severe agitation Olanzapine (Olanzapine Odt 10 Mg Tab.Rapdis) 20 mg TRANSLINGU DAILY@1200 FRANKIE Last Admin: 12/24/23 12:25 Dose: Not Given Trazodone HCl (Trazodone Hcl 50 Mg Tablet) 50 mg PO BEDTIME MRX1 PRN PRN Reason: Insomnia Allergies Allergies Allergy/AdvReac Type Severity Reaction Status Date / Time No Known Allergies Allergy Verified 11/30/23 18:52 Assessment & Plan Assessment & Plan (1) Schizophrenia: Status: Acute Code(s): F20.9 - Schizophrenia, unspecified Plan appears to have some kind of psychotic disorder, perhaps with bipolar diathesis. declining medications. states he is benefiting from staff contacts and groups. will collect collateral as possible, build rapport for now. 12/05: Social with peers. guarded during 1:1. Pt reports feeling pretty good ; pt stated, I'm trying to take thing from here and then implement them into my life. I'm not interested in meds . denies SI/HI. 12/07: Continue current plans and regimen and encouraged about medications which he is closed off to. 12/08: agreed to take meds to help organize thoughts, then declined an hour later claiming the person with whom he'd discussed meds had told him to hold off until tomorrow. olanzapine 10 mg QHS prescribed. remains disorganized and vague. 12/09: refused HS zyprexa last night, took zyprexa 2.5 mg this morning. aware of plan to discharge tomorrow if not engaging in pharmacotherapy. no change in presentation. paranoid delusions. 12/10: episode of paranoid delusion-driven provocation, escalation, and violence last evening resulting in restraint and IM meds. denies mental illness. CV revoked and moving for commitment. 12/11: filed for commitment. pt angry re filing. took olanzapine 10 mg x 1 NOW. dosing at HS increased to 20 mg. 12/12: declined HS dosing last night. once again alleged HS RNs did not offer medication. agreed to take it now, which he did, and dosing time changed to QNOON. 12/13-12/15: refusing antipsychotics. no provocative behaviors noted. 12/16: refusing antipsychotics. appears able to refrain from antagonizing peers and feeling less strongly re his paranoid delusions. he did get zyprexa 2.5 mg PO and 10 mg IM on 12/09; zyprexa 10 mg PO on 12/11; and zyprexa 20 mg PO on 12/12. these modest doses of antipsychotic in close succession in recent days appear to have ameliorated pt's Sx somewhat. court . 12/17: refusing meds, Sx as yesterday. denies mental illness or utility of medications for him. court tomorrow. continue to offer medication. 12/18 continue tx. pt declines medications. 12/19 continue tx. 12/20: Continue current management and treatment plan. 12/21: continue current management and treatment plan. 12/22: continue current mgmt. refusing meds. continues more organized and linear than at admission. over the weekend went into peers' rooms twice, once to use toilet and another time accusing peer of having stolen his shirt. said to staff, i just want to piss people off. hearing rescheduled for 12/28. 12/23: calm, cooperative. reportedly went into peer's room last NOC without explanation. otherwise no events. refusing meds. place on CO due to reports of wandering. 12/24: no wandering while on CO last night. brief outburst yesterday afternoon regarding being on CO, asserting it would look bad for court. returned to Q5 min checks today. refusing zyprexa. will switch to alternate antipsychotic as pt was reported to have refused zyprexa based on it's having caused him a panic attack last time he took it (event though he has previously refused to try an alternate antipsychotic). Reason for continued inpatient stay Substantial Risk for: harm to others, inability to function and rapid decompensation Time Spent With Patient Time: Total time managing care of this patient today __25__ minutes.
[2023-12-24 19:55] VITALS: BP 119/66; PULSE 100; RESP 16; TEMP 36.3; O2SAT 95
[2023-12-25 07:00] VITALS: BMI 34.7
[2023-12-25 08:52] VITALS: BP 130/81; PULSE 88; RESP 20; TEMP 36.5; O2SAT 100
--- NOTE | 2023-12-25 14:26 | HO.PSYCHPN ---
Subjective Subjective Date of Service: 12/25/23 Reason For Visit: psychosis Interim History: calm, cooperative. appears suspicious, but interacts appropriately. per staff, no change in presentation. denies Sx. taking meals. teasing peer last night. slept about 6 hours. refusing medications. Mental Status Exam Mental Status Exam Narrative: calm, cooperative. adequately dressed and groomed. no PMA/PMR. speech nml rate, incr amount, nml loudness, decr latency. thoughts less vague and tangential than before. affect flexible, normo-intense, non-labile. mood not assessed. no SI/SIBI/HI/AVH expressed. Diagnostics Vital Signs (24Hr): Vital Signs - 24 hr 12/24/23 19:55 12/25/23 08:52 Temperature 97.3 F 97.7 F Pulse Rate 100 88 Respiratory Rate 16 20 Blood Pressure 119/66 130/81 Pulse Oximetry 95 100 Oxygen Delivery Method Room Air Room Air BMI result Body Mass Index 34.7 Labs 11/30/23 19:52 11/30/23 19:52 Medications Medications Current Medications Acetaminophen (Acetaminophen 325 Mg Tablet) 650 mg PO Q6H PRN PRN Reason: Headache/Pain Mild Scale (1-3) Al Hydroxide/Mg Hydroxide (Magnesium Hydrox/Alum Hydrox 30 Ml Oral.Susp) 30 ml PO Q6H PRN PRN Reason: Heartburn/Nausea Cariprazine (Cariprazine Hcl 3 Mg Capsule) 3 mg PO DAILY FRANKIE Last Admin: 12/25/23 08:53 Dose: Not Given Hydroxyzine HCl (Hydroxyzine Hcl 25 Mg Tablet) 25 mg PO Q6H PRN PRN Reason: Anxiety Last Admin: 12/23/23 12:05 Dose: 25 mg Lorazepam (Lorazepam 1 Mg Tablet) 1 mg PO Q4H PRN PRN Reason: severe agitation Last Admin: 12/11/23 11:36 Dose: 1 mg Magnesium Hydroxide (Milk Of Magnesia 30 Ml Oral.Susp) 30 ml PO DAILY PRN PRN Reason: Constipation Nicotine Polacrilex (Nicotine Polacrilex 2 Mg Gum) 4 mg BUCCAL Q2H PRN PRN Reason: Nicotine Cravings Last Admin: 12/18/23 20:23 Dose: 4 mg Olanzapine (Olanzapine Odt 10 Mg Tab.Rapdis) 10 mg TRANSLINGU Q4H PRN PRN Reason: severe agitation Trazodone HCl (Trazodone Hcl 50 Mg Tablet) 50 mg PO BEDTIME MRX1 PRN PRN Reason: Insomnia Allergies Allergies Allergy/AdvReac Type Severity Reaction Status Date / Time No Known Allergies Allergy Verified 11/30/23 18:52 Assessment & Plan Assessment & Plan (1) Schizophrenia: Status: Acute Code(s): F20.9 - Schizophrenia, unspecified Plan appears to have some kind of psychotic disorder, perhaps with bipolar diathesis. declining medications. states he is benefiting from staff contacts and groups. will collect collateral as possible, build rapport for now. 12/05: Social with peers. guarded during 1:1. Pt reports feeling pretty good ; pt stated, I'm trying to take thing from here and then implement them into my life. I'm not interested in meds . denies SI/HI. 12/07: Continue current plans and regimen and encouraged about medications which he is closed off to. 12/08: agreed to take meds to help organize thoughts, then declined an hour later claiming the person with whom he'd discussed meds had told him to hold off until tomorrow. olanzapine 10 mg QHS prescribed. remains disorganized and vague. 12/09: refused HS zyprexa last night, took zyprexa 2.5 mg this morning. aware of plan to discharge tomorrow if not engaging in pharmacotherapy. no change in presentation. paranoid delusions. 12/10: episode of paranoid delusion-driven provocation, escalation, and violence last evening resulting in restraint and IM meds. denies mental illness. CV revoked and moving for commitment. 12/11: filed for commitment. pt angry re filing. took olanzapine 10 mg x 1 NOW. dosing at HS increased to 20 mg. 12/12: declined HS dosing last night. once again alleged HS RNs did not offer medication. agreed to take it now, which he did, and dosing time changed to QNOON. 12/13-12/15: refusing antipsychotics. no provocative behaviors noted. 12/16: refusing antipsychotics. appears able to refrain from antagonizing peers and feeling less strongly re his paranoid delusions. he did get zyprexa 2.5 mg PO and 10 mg IM on 12/09; zyprexa 10 mg PO on 12/11; and zyprexa 20 mg PO on 12/12. these modest doses of antipsychotic in close succession in recent days appear to have ameliorated pt's Sx somewhat. court . 12/17: refusing meds, Sx as yesterday. denies mental illness or utility of medications for him. court tomorrow. continue to offer medication. 12/18 continue tx. pt declines medications. 12/19 continue tx. 12/20: Continue current management and treatment plan. 12/21: continue current management and treatment plan. 12/22: continue current mgmt. refusing meds. continues more organized and linear than at admission. over the weekend went into peers' rooms twice, once to use toilet and another time accusing peer of having stolen his shirt. said to staff, i just want to piss people off. hearing rescheduled for 12/28. 12/23: calm, cooperative. reportedly went into peer's room last NOC without explanation. otherwise no events. refusing meds. place on CO due to reports of wandering. 12/24: no wandering while on CO last night. brief outburst yesterday afternoon regarding being on CO, asserting it would look bad for court. returned to Q5 min checks today. refusing zyprexa. will switch to alternate antipsychotic as pt was reported to have refused zyprexa based on it's having caused him a panic attack last time he took it (event though he has previously refused to try an alternate antipsychotic). : no change in presentation, refusing vraylar. continue current mgmt. Reason for continued inpatient stay Substantial Risk for: inability to function and rapid decompensation Time Spent With Patient Time: Total time managing care of this patient today __25__ minutes.
--- NOTE | 2023-12-25 18:31 | PC.NURSE ---
Pt was focused on leaving the unit. Asked staff to have their keys because he wanted to leave. Pt walked away, going into the sensory room and slammed the door. Pt approach to process and requested go be left alone. Pt then walked to room and slammed door. Pt began yelling and hitting the prakash in his bathroom while sitting on floor in the bathroom. When approached pt began yelling and screaming, punching prakash extremely hard, at times words were unintelligible. Pt did not threaten staff, but was angry at parents and himself. Security was on the unit and approached pt to talk to him in bathroom. During this period staff called a code assist. Pt calmed with security present and talking with patient. Pt was upset believing Dad is ruining his life and there is no hope for his future. Pt was able to eat meal in milieu with peers. Pt then paced unit and began to do push ups at the end of the hallways.
[2023-12-25 20:00] VITALS: BP 124/60; PULSE 107; RESP 18; TEMP 36.7; O2SAT 96
[2023-12-26 07:15] VITALS: BP 142/16; PULSE 80; RESP 16; TEMP 36.9; O2SAT 97
--- NOTE | 2023-12-26 13:29 | HO.PSYCHPN ---
Subjective Subjective Date of Service: 12/26/23 Reason For Visit: psychosis Interim History: calm, cooperative. states he became agitated last evening after another peer became agitated and began banging on the telephone. denies any other trigger or provocation. otherwise no complaints or requests, no other notable events or behaviors. per staff, denies dep/anx. refusing medications. 17:45 punching prakash, screaming, slamming doors. angry at self for being here, dad thinks i'm worthless. Mental Status Exam Mental Status Exam Narrative: calm, cooperative. adequately dressed and groomed. no PMA/PMR. speech nml rate, amount, loudness; decr latency. thoughts less vague and tangential than before. affect flexible, normo-intense, non-labile. mood not assessed. no SI/SIBI/HI/AVH expressed. Diagnostics Vital Signs (24Hr): Vital Signs - 24 hr 12/25/23 20:00 12/26/23 07:15 Temperature 98.1 F 98.4 F Pulse Rate 107 H 80 Respiratory Rate 18 16 Blood Pressure 124/60 142/16 H Pulse Oximetry 96 97 Oxygen Delivery Method Room Air Room Air BMI result Body Mass Index 34.7 Labs 11/30/23 19:52 11/30/23 19:52 Medications Medications Current Medications Acetaminophen (Acetaminophen 325 Mg Tablet) 650 mg PO Q6H PRN PRN Reason: Headache/Pain Mild Scale (1-3) Al Hydroxide/Mg Hydroxide (Magnesium Hydrox/Alum Hydrox 30 Ml Oral.Susp) 30 ml PO Q6H PRN PRN Reason: Heartburn/Nausea Cariprazine (Cariprazine Hcl 3 Mg Capsule) 3 mg PO DAILY [facility] Last Admin: 12/26/23 08:42 Dose: Not Given Hydroxyzine HCl (Hydroxyzine Hcl 25 Mg Tablet) 25 mg PO Q6H PRN PRN Reason: Anxiety Last Admin: 12/23/23 12:05 Dose: 25 mg Lorazepam (Lorazepam 1 Mg Tablet) 1 mg PO Q4H PRN PRN Reason: severe agitation Last Admin: 12/11/23 11:36 Dose: 1 mg Magnesium Hydroxide (Milk Of Magnesia 30 Ml Oral.Susp) 30 ml PO DAILY PRN PRN Reason: Constipation Nicotine Polacrilex (Nicotine Polacrilex 2 Mg Gum) 4 mg BUCCAL Q2H PRN PRN Reason: Nicotine Cravings Last Admin: 12/18/23 20:23 Dose: 4 mg Olanzapine (Olanzapine Odt 10 Mg Tab.Rapdis) 10 mg TRANSLINGU Q4H PRN PRN Reason: severe agitation Trazodone HCl (Trazodone Hcl 50 Mg Tablet) 50 mg PO BEDTIME MRX1 PRN PRN Reason: Insomnia Allergies Allergies Allergy/AdvReac Type Severity Reaction Status Date / Time No Known Allergies Allergy Verified 11/30/23 18:52 Assessment & Plan Assessment & Plan (1) Schizophrenia: Status: Acute Code(s): F20.9 - Schizophrenia, unspecified Plan appears to have some kind of psychotic disorder, perhaps with bipolar diathesis. declining medications. states he is benefiting from staff contacts and groups. will collect collateral as possible, build rapport for now. 12/05: Social with peers. guarded during 1:1. Pt reports feeling pretty good ; pt stated, I'm trying to take thing from here and then implement them into my life. I'm not interested in meds . denies SI/HI. 12/07: Continue current plans and regimen and encouraged about medications which he is closed off to. 12/08: agreed to take meds to help organize thoughts, then declined an hour later claiming the person with whom he'd discussed meds had told him to hold off until tomorrow. olanzapine 10 mg QHS prescribed. remains disorganized and vague. 12/09: refused HS zyprexa last night, took zyprexa 2.5 mg this morning. aware of plan to discharge tomorrow if not engaging in pharmacotherapy. no change in presentation. paranoid delusions. 12/10: episode of paranoid delusion-driven provocation, escalation, and violence last evening resulting in restraint and IM meds. denies mental illness. CV revoked and moving for commitment. 12/11: filed for commitment. pt angry re filing. took olanzapine 10 mg x 1 NOW. dosing at HS increased to 20 mg. 12/12: declined HS dosing last night. once again alleged HS RNs did not offer medication. agreed to take it now, which he did, and dosing time changed to QNOON. 12/13-12/15: refusing antipsychotics. no provocative behaviors noted. 12/16: refusing antipsychotics. appears able to refrain from antagonizing peers and feeling less strongly re his paranoid delusions. he did get zyprexa 2.5 mg PO and 10 mg IM on 12/09; zyprexa 10 mg PO on 12/11; and zyprexa 20 mg PO on 12/12. these modest doses of antipsychotic in close succession in recent days appear to have ameliorated pt's Sx somewhat. court . 12/17: refusing meds, Sx as yesterday. denies mental illness or utility of medications for him. court tomorrow. continue to offer medication. 12/18 continue tx. pt declines medications. 12/19 continue tx. 12/20: Continue current management and treatment plan. 12/21: continue current management and treatment plan. 12/22: continue current mgmt. refusing meds. continues more organized and linear than at admission. over the weekend went into peers' rooms twice, once to use toilet and another time accusing peer of having stolen his shirt. said to staff, i just want to piss people off. hearing rescheduled for 12/28. 12/23: calm, cooperative. reportedly went into peer's room last NOC without explanation. otherwise no events. refusing meds. place on CO due to reports of wandering. 12/24: no wandering while on CO last night. brief outburst yesterday afternoon regarding being on CO, asserting it would look bad for court. returned to Q5 min checks today. refusing zyprexa. will switch to alternate antipsychotic as pt was reported to have refused zyprexa based on it's having caused him a panic attack last time he took it (event though he has previously refused to try an alternate antipsychotic). : no change in presentation, refusing vraylar. continue current mgmt. 12/25: as for yesterday. one episode of agitation last evening, punching prakash, screaming, slamming doors. able to calm and de-escalate. Reason for continued inpatient stay Substantial Risk for: inability to function and rapid decompensation Time Spent With Patient Time: Total time managing care of this patient today __25__ minutes.
[2023-12-26 19:45] VITALS: BP 129/73; PULSE 96; RESP 16; TEMP 36.6; O2SAT 96
[2023-12-27 08:02] VITALS: BP 122/65; PULSE 74; RESP 16; TEMP 36.1; O2SAT 98
--- NOTE | 2023-12-27 16:19 | HO.PSYCHPN ---
Subjective Subjective Date of Service: 12/27/23 Reason For Visit: psychosis Interim History: calm, cooperative. feeling good. just awaiting discharge. saw sales and marketing associate this morning. explains his upset after group yesterday being his perception that a peer to whom he had divulged some sensitive personal information then made overt references to it during group while staring at him. per staff, court friday. very angry after group yesterday, yelling. crying outside with staff afterward, expressing hopelessness. overheard making inappropriate sexual remarks to peers in milieu: my carlo hurts, and i should just put a hole in my mattress. Mental Status Exam Mental Status Exam Narrative: calm, cooperative. adequately dressed and groomed. no PMA/PMR. speech nml rate, amount, loudness; decr latency. thoughts less vague and tangential than before. affect flexible, normo-intense, non-labile. mood good. no SI/SIBI/HI/AVH expressed. Diagnostics Vital Signs (24Hr): Vital Signs - 24 hr 12/26/23 19:45 12/27/23 08:02 Temperature 97.8 F 96.9 F Pulse Rate 96 74 Respiratory Rate 16 16 Blood Pressure 129/73 122/65 Pulse Oximetry 96 98 Oxygen Delivery Method Room Air Room Air BMI result Body Mass Index 34.7 Labs 11/30/23 19:52 11/30/23 19:52 Medications Medications Current Medications Acetaminophen (Acetaminophen 325 Mg Tablet) 650 mg PO Q6H PRN PRN Reason: Headache/Pain Mild Scale (1-3) Al Hydroxide/Mg Hydroxide (Magnesium Hydrox/Alum Hydrox 30 Ml Oral.Susp) 30 ml PO Q6H PRN PRN Reason: Heartburn/Nausea Cariprazine (Cariprazine Hcl 3 Mg Capsule) 3 mg PO DAILY [facility] Last Admin: 12/27/23 09:31 Dose: Not Given Hydroxyzine HCl (Hydroxyzine Hcl 25 Mg Tablet) 25 mg PO Q6H PRN PRN Reason: Anxiety Last Admin: 12/23/23 12:05 Dose: 25 mg Lorazepam (Lorazepam 1 Mg Tablet) 1 mg PO Q4H PRN PRN Reason: severe agitation Last Admin: 12/11/23 11:36 Dose: 1 mg Magnesium Hydroxide (Milk Of Magnesia 30 Ml Oral.Susp) 30 ml PO DAILY PRN PRN Reason: Constipation Nicotine Polacrilex (Nicotine Polacrilex 2 Mg Gum) 4 mg BUCCAL Q2H PRN PRN Reason: Nicotine Cravings Last Admin: 12/18/23 20:23 Dose: 4 mg Olanzapine (Olanzapine Odt 10 Mg Tab.Rapdis) 10 mg TRANSLINGU Q4H PRN PRN Reason: severe agitation Trazodone HCl (Trazodone Hcl 50 Mg Tablet) 50 mg PO BEDTIME MRX1 PRN PRN Reason: Insomnia Allergies Allergies Allergy/AdvReac Type Severity Reaction Status Date / Time No Known Allergies Allergy Verified 11/30/23 18:52 Assessment & Plan Assessment & Plan (1) Schizophrenia: Status: Acute Code(s): F20.9 - Schizophrenia, unspecified Plan appears to have some kind of psychotic disorder, perhaps with bipolar diathesis. declining medications. states he is benefiting from staff contacts and groups. will collect collateral as possible, build rapport for now. 12/05: Social with peers. guarded during 1:1. Pt reports feeling pretty good ; pt stated, I'm trying to take thing from here and then implement them into my life. I'm not interested in meds . denies SI/HI. 12/07: Continue current plans and regimen and encouraged about medications which he is closed off to. 12/08: agreed to take meds to help organize thoughts, then declined an hour later claiming the person with whom he'd discussed meds had told him to hold off until tomorrow. olanzapine 10 mg QHS prescribed. remains disorganized and vague. 12/09: refused HS zyprexa last night, took zyprexa 2.5 mg this morning. aware of plan to discharge tomorrow if not engaging in pharmacotherapy. no change in presentation. paranoid delusions. 12/10: episode of paranoid delusion-driven provocation, escalation, and violence last evening resulting in restraint and IM meds. denies mental illness. CV revoked and moving for commitment. 12/11: filed for commitment. pt angry re filing. took olanzapine 10 mg x 1 NOW. dosing at HS increased to 20 mg. 12/12: declined HS dosing last night. once again alleged HS RNs did not offer medication. agreed to take it now, which he did, and dosing time changed to QNOON. 12/13-12/15: refusing antipsychotics. no provocative behaviors noted. 12/16: refusing antipsychotics. appears able to refrain from antagonizing peers and feeling less strongly re his paranoid delusions. he did get zyprexa 2.5 mg PO and 10 mg IM on 12/09; zyprexa 10 mg PO on 12/11; and zyprexa 20 mg PO on 12/12. these modest doses of antipsychotic in close succession in recent days appear to have ameliorated pt's Sx somewhat. court . 12/17: refusing meds, Sx as yesterday. denies mental illness or utility of medications for him. court tomorrow. continue to offer medication. 12/18 continue tx. pt declines medications. 12/19 continue tx. 12/20: Continue current management and treatment plan. 12/21: continue current management and treatment plan. 12/22: continue current mgmt. refusing meds. continues more organized and linear than at admission. over the weekend went into peers' rooms twice, once to use toilet and another time accusing peer of having stolen his shirt. said to staff, i just want to piss people off. hearing rescheduled for 12/28. 12/23: calm, cooperative. reportedly went into peer's room last NOC without explanation. otherwise no events. refusing meds. place on CO due to reports of wandering. 12/24: no wandering while on CO last night. brief outburst yesterday afternoon regarding being on CO, asserting it would look bad for court. returned to Q5 min checks today. refusing zyprexa. will switch to alternate antipsychotic as pt was reported to have refused zyprexa based on it's having caused him a panic attack last time he took it (event though he has previously refused to try an alternate antipsychotic). : no change in presentation, refusing vraylar. continue current mgmt. 12/25: as for yesterday. one episode of agitation last evening, punching prakash, screaming, slamming doors. able to calm and de-escalate. 12/26: one episode of dysregulation last night, yelling, then crying while on fresh air break. apparently due to psychotic interpretation of interaction with peer. continue to offer medication. pt currently declining. Reason for continued inpatient stay Substantial Risk for: inability to function Time Spent With Patient Time: Total time managing care of this patient today ____ minutes.
[2023-12-27 20:06] VITALS: BP 160/83; PULSE 93; RESP 16; TEMP 36.4; O2SAT 97
[2023-12-28 08:15] VITALS: BP 127/66; PULSE 76; RESP 18; TEMP 36.4; O2SAT 96
--- NOTE | 2023-12-28 16:29 | HO.PSYCHPN ---
Subjective Subjective Date of Service: 12/28/23 Reason For Visit: psychosis Interim History: calm, cooperative. generally vague and evasive. per staff, no outbursts yesterday. overheard to have said, everything is pointing to [place]in[place] [an mental health counselor on [facility]]... what's going on? slept well. Mental Status Exam Mental Status Exam Narrative: calm, cooperative. adequately dressed and groomed. no PMA/PMR. speech nml rate, amount, loudness, latency. thoughts vague, lacking in substance. affect constricted, normo-intense, non-labile. mood good. no SI/SIBI/HI/AVH expressed. Diagnostics Vital Signs (24Hr): Vital Signs - 24 hr 12/27/23 20:06 12/28/23 08:15 Temperature 97.6 F 97.5 F Pulse Rate 93 76 Respiratory Rate 16 18 Blood Pressure 160/83 H 127/66 Pulse Oximetry 97 96 Oxygen Delivery Method Room Air Room Air BMI result Body Mass Index 34.7 Labs 11/30/23 19:52 11/30/23 19:52 Medications Medications Current Medications Acetaminophen (Acetaminophen 325 Mg Tablet) 650 mg PO Q6H PRN PRN Reason: Headache/Pain Mild Scale (1-3) Al Hydroxide/Mg Hydroxide (Magnesium Hydrox/Alum Hydrox 30 Ml Oral.Susp) 30 ml PO Q6H PRN PRN Reason: Heartburn/Nausea Cariprazine (Cariprazine Hcl 3 Mg Capsule) 3 mg PO DAILY [facility] Last Admin: 12/28/23 08:19 Dose: Not Given Hydroxyzine HCl (Hydroxyzine Hcl 25 Mg Tablet) 25 mg PO Q6H PRN PRN Reason: Anxiety Last Admin: 12/23/23 12:05 Dose: 25 mg Lorazepam (Lorazepam 1 Mg Tablet) 1 mg PO Q4H PRN PRN Reason: severe agitation Last Admin: 12/11/23 11:36 Dose: 1 mg Magnesium Hydroxide (Milk Of Magnesia 30 Ml Oral.Susp) 30 ml PO DAILY PRN PRN Reason: Constipation Nicotine Polacrilex (Nicotine Polacrilex 2 Mg Gum) 4 mg BUCCAL Q2H PRN PRN Reason: Nicotine Cravings Last Admin: 12/18/23 20:23 Dose: 4 mg Olanzapine (Olanzapine Odt 10 Mg Tab.Rapdis) 10 mg TRANSLINGU Q4H PRN PRN Reason: severe agitation Trazodone HCl (Trazodone Hcl 50 Mg Tablet) 50 mg PO BEDTIME MRX1 PRN PRN Reason: Insomnia Allergies Allergies Allergy/AdvReac Type Severity Reaction Status Date / Time No Known Allergies Allergy Verified 11/30/23 18:52 Assessment & Plan Assessment & Plan (1) Schizophrenia: Status: Acute Code(s): F20.9 - Schizophrenia, unspecified Plan appears to have some kind of psychotic disorder, perhaps with bipolar diathesis. declining medications. states he is benefiting from staff contacts and groups. will collect collateral as possible, build rapport for now. 12/05: Social with peers. guarded during 1:1. Pt reports feeling pretty good ; pt stated, I'm trying to take thing from here and then implement them into my life. I'm not interested in meds . denies SI/HI. 12/07: Continue current plans and regimen and encouraged about medications which he is closed off to. 12/08: agreed to take meds to help organize thoughts, then declined an hour later claiming the person with whom he'd discussed meds had told him to hold off until tomorrow. olanzapine 10 mg QHS prescribed. remains disorganized and vague. 12/09: refused HS zyprexa last night, took zyprexa 2.5 mg this morning. aware of plan to discharge tomorrow if not engaging in pharmacotherapy. no change in presentation. paranoid delusions. 12/10: episode of paranoid delusion-driven provocation, escalation, and violence last evening resulting in restraint and IM meds. denies mental illness. CV revoked and moving for commitment. 12/11: filed for commitment. pt angry re filing. took olanzapine 10 mg x 1 NOW. dosing at HS increased to 20 mg. 12/12: declined HS dosing last night. once again alleged HS RNs did not offer medication. agreed to take it now, which he did, and dosing time changed to QNOON. 12/13-12/15: refusing antipsychotics. no provocative behaviors noted. 12/16: refusing antipsychotics. appears able to refrain from antagonizing peers and feeling less strongly re his paranoid delusions. he did get zyprexa 2.5 mg PO and 10 mg IM on 12/09; zyprexa 10 mg PO on 12/11; and zyprexa 20 mg PO on 12/12. these modest doses of antipsychotic in close succession in recent days appear to have ameliorated pt's Sx somewhat. court . 12/17: refusing meds, Sx as yesterday. denies mental illness or utility of medications for him. court tomorrow. continue to offer medication. 12/18 continue tx. pt declines medications. 12/19 continue tx. 12/20: Continue current management and treatment plan. 12/21: continue current management and treatment plan. 12/22: continue current mgmt. refusing meds. continues more organized and linear than at admission. over the weekend went into peers' rooms twice, once to use toilet and another time accusing peer of having stolen his shirt. said to staff, i just want to piss people off. hearing rescheduled for 12/28. 12/23: calm, cooperative. reportedly went into peer's room last NOC without explanation. otherwise no events. refusing meds. place on CO due to reports of wandering. 12/24: no wandering while on CO last night. brief outburst yesterday afternoon regarding being on CO, asserting it would look bad for court. returned to Q5 min checks today. refusing zyprexa. will switch to alternate antipsychotic as pt was reported to have refused zyprexa based on it's having caused him a panic attack last time he took it (event though he has previously refused to try an alternate antipsychotic). : no change in presentation, refusing vraylar. continue current mgmt. 12/25: as for yesterday. one episode of agitation last evening, punching prakash, screaming, slamming doors. able to calm and de-escalate. 12/26: one episode of dysregulation last night, yelling, then crying while on fresh air break. apparently due to psychotic interpretation of interaction with peer. continue to offer medication. pt currently declining. 12/27: no dysregulation in the past day. remains with paranoid delusions. continue to offer medication. court scheduled for tomorrow. Reason for continued inpatient stay Substantial Risk for: harm to others, inability to function and rapid decompensation Time Spent With Patient Time: Total time managing care of this patient today ____ minutes.
[2023-12-28 20:00] VITALS: BP 150/95; PULSE 100; RESP 14; TEMP 36.4; O2SAT 96
[2023-12-29 07:35] VITALS: BP 122/67; PULSE 79; RESP 16; TEMP 36.4; O2SAT 96
[2023-12-29] MEDS: hydrOXYzine HCL 25 MG TABLET PO (09:03)
[2023-12-29] MEDS: Cariprazine HCl 3 MG CAPSULE PO (09:55)
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
--- NOTE | 2023-12-29 12:41 | PC.NURSE ---
Patient easily engaged. Continues disorganized and paranoid. Denies A/V hallucinations. Denies SI/HI plan or intent at this time. Endorses anxiety. Discharge paperwork reviewed with patient, reports understanding. Medication reviewed with patient reports understanding. Follow up appointment reviewed with patient, reports understanding. All belongings given to patient. Furrier Designer for client providing transportation. Crisis numbers provided to patient. Aware of walk in clinic if needed.
== END 2023-12-29 12:10 | disposition home or self-care (01) | DRG 750 ==
LOC: HO.ED 12-02 11:25 → HO.PADLT16 12-02 13:49
PROVIDERS: Psychiatry & Neurology Psychiatry; Admitting Provider Psychiatry & Neurology Psychiatry; Emergency Provider Emergency Medicine; PCP Pediatrics; Visit Provider Psychiatry & Neurology Psychiatry
DX: F20.0 Paranoid schizophrenia (principal); Z20.822 Contact with and (suspected) exposure to COVID-19; Z59.02 Unsheltered homelessness
CPT/HCPCS: 36415; 80053; 80061; 80307; 81003; 82607; 82746; 83036; 84439; 84443; 85025; 87635; 93005; 99285; J1200; J2060; J2359; S9485

== ENCOUNTER 2023-12-02 13:46 | Outpatient (BNV) | payer OTHER, SELFPAY | END 2023-12-12 13:56 | PROVIDERS: Admitting Provider Psychiatry & Neurology Psychiatry; Emergency Provider Emergency Medicine; PCP Pediatrics; Visit Provider Internal Medicine Cardiovascular Disease | DX: R00.2 Palpitations (principal) | CPT/HCPCS: 93010 ==

== ENCOUNTER → 2023-12-02 13:46 | Outpatient (BNV) | payer OTHER, SELFPAY | PROVIDERS: Admitting Provider Psychiatry & Neurology Psychiatry; Emergency Provider Emergency Medicine; PCP Pediatrics; Visit Provider Psychiatry & Neurology Psychiatry | DX: F20.0 Paranoid schizophrenia (principal) | CPT/HCPCS: 90792; 99231; 99232; 99239 ==

== ENCOUNTER 2024-02-09 21:58 | Inpatient (IN) | payer OTHER, SELFPAY ==
--- NOTE | 2024-02-09 22:20 | ED_ITS ---
HPI - General Adult General Chief complaint: Psychiatric Symptoms Stated complaint: PD on board, psych, refused vitals Time Seen by Provider: 02/09/24 22:20 History of Present Illness HPI narrative: The patient is a 28-year-old male who was brought to the hospital by police on a section 12. The patient was recently hospitalized on our psychiatric unit. He was hospitalized from December 02 through December 28. He was admitted for delusional paranoia and possibly schizophrenia. Apparently he had been prescribed Vraylar prior to his hospitalization he was continued on this medication when he was discharged. Today the patient was at the [employer] and he was lingering in stores for a very long time asking women to give him a ride home. Apparently he was intrusive and ultimately police were called. When police confronted the patient he apparently told them to shoot him. The patient was then brought here on a section 12. The patient insists that he was only asking for someone to give him a ride home. He denies being suicidal. The patient denies fever, sweats, chills, chest pain, abdominal pain, nausea, vomiting. Related Data Previous Rx's ?Medication ?Instructions ?Recorded cariprazine 3 mg capsule (Vraylar) 3 mg PO DAILY 30 days #30 caps 12/29/23 Allergies Allergy/AdvReac Type Severity Reaction Status Date / Time No Known Allergies Allergy Verified 02/09/24 22:37 Review of Systems Review of Systems: Yes all other systems are reviewed and are negative [facility] Past Medical History Medical History (Updated 02/10/24 @ 02:05 by Getachew Garcia MD) Delusions Social History Social History Household Members: None Housing: Homeless Unable to assess alcohol history related to: Refusing to respond Patient Tobacco Use Status: Refuse Tobacco use screen Advance Directives: No Advance Directives Information Provided: No service: No Sexual orientation: Straight/Heterosexual Physical Exam ED Vital Signs: Vital Signs - 24 hr 02/09/24 22:44 Pulse Rate 72 Respiratory Rate 16 Blood Pressure 140/80 H Pulse Oximetry 97 Oxygen Delivery Method Room Air BMI result Body Mass Index 29.9 Const Other: The patient was awake and alert. He was reasonably well groomed. He had a quite intense affect. He did not seem in distress. HENMT Other: Face is symmetrical, mucous membranes moist. Eyes Other: Pupils are round equal, conjunctivae are clear, extraocular movements intact Neck Other: Moving his neck easily Resp Effort & Inspection: normal respiratory effort Auscultation: clear to auscultation bilaterally Cardio Rate: regular rate Rhythm: regular rhythm Heart sounds: S1 normal heart sound present and S2 normal heart sound present GI Other: Abdomen soft and nontender Skin Other: Skin dry and unremarkable Neuro Other: The patient is awake and alert. GCS is 15. Cranial nerves 2-12 are intact. The patient moves all 4 extremities normally and appropriately. Gait is steady. Coordination was normal. The patient is neurologically intact Extrem Other: No signs of injury to the extremities Psych Other: The patient is reasonably well-kempt. The patient has a somewhat intense affect. At first the patient seemed to have a somewhat belligerent demeanor but this subsided. Medications Administered Discontinued Medications Generic Name Dose Route Start Last Admin Trade Name Freq PRN Reason Stop Dose Admin Cariprazine 3 mg 02/09/24 22:42 02/09/24 22:50 Cariprazine Hcl 3 Mg Capsule PO 02/09/24 22:43 3 mg ONCE ONE Administration Medical Decision Making Medical Decision Making [facility] Narrative: The patient is a 28-year-old male who, according to hospital records, has a his tory of schizophrenia. He recently had a month long hospitalization on our psychiatric unit from December 03 through December 28. The patient's regular medications seems to be cariprazine (Vraylar), 3 mg daily. The patient came to the attention of police today after he was exhibiting bizarre behavior at stores at the [employer]. Apparently when police confronted him the patient asked the police to shoot him. The police therefore brought the patient to the hospital under a section 12. On arrival here the patient was at 1st contrary and somewhat confrontational but eventually calmed down to the point where he loud vital signs to be taken and he provided a urine sample. He has not yet a loud phlebotomy. He accepted a dose of cariprazine. I suspect that the patient is having some decompensation of his chronic mental illness. I consider him medically clear for evaluation by the care team. His urine tox screen is negative. His regular medication has been ordered. The the patient is medically clear for evaluation by the care team. Lab Data Labs: Lab Results 02/10/24 Range/Units 00:04 Urine Opiates Screen Not Detected (Not Detect) Urine Fentanyl Screen Not Detected (Not Detect) Ur Barbiturates Screen Not Detected (Not Detect) Ur Phencyclidine Scrn Not Detected (Not Detect) Ur Amphetamines Screen Not Detected (Not Detect) U Benzodiazepines Scrn Not Detected (Not Detect) Urine Cocaine Screen Not Detected (Not Detect) U Marijuana (THC) Screen Not Detected (Not Detect) Discharge Plan Discharge Clinical Impression: Schizophrenia Patient Disposition: Still a Patient Prescriptions: No Action Vraylar 3 mg Capsule 3 mg PO DAILY 30 Days Qty: 30 0RF Interventions: Avery-Suicide Risk Severity Scale Last Done: 02/09/24 22:37 Print Language: Danish
[2024-02-09 22:30] VITALS: BMI 29.9
--- NOTE | 2024-02-09 22:32 | MHC.EDTECH ---
t/w and ROMAN Begum attempted to obtain triage vitals where pt told staff to go fuck themselves . pt also refusing all urine and other labwork currently ordered. RN AND PROVIDER AWARE.
[2024-02-09 22:44] VITALS: BP 140/80; PULSE 72; RESP 16; O2SAT 97
[2024-02-09] MEDS: Cariprazine HCl 3 MG CAPSULE PO (22:50)
--- NOTE | 2024-02-10 | ECG_ITS ---
Test Reason : CHECK FOR PROLONG QT Blood Pressure : / mmHG Vent. Rate : 070 BPM Atrial Rate : 070 BPM P-R Int : 172 ms QRS Dur : 088 ms QT Int : 382 ms P-R-T Axes : 052 086 054 degrees QTc Int : 412 ms Normal sinus rhythm Normal ECG When compared with ECG of 12-DEC-2023 15:27, No significant change was found Referred By: Amado Lewis Electronically Signed By:FRANKLIN SINGH
[2024-02-10 00:23] LABS: Amphetamine Screen Urine Not Detected (Not Detect); Barbiturates, Urine Not Detected (Not Detect); Benzodiazepines Screen Urine Not Detected (Not Detect); Cannabinoid Screen Urine Not Detected (Not Detect); Cocaine Screen Urine Not Detected (Not Detect); Fentanyl, urine Not Detected (Not Detect); Opiate Screen Urine Not Detected (Not Detect); Phencyclidine Screen Urine Not Detected (Not Detect)
--- NOTE | 2024-02-10 05:53 | MHC.EDTECH ---
WE WERE ABLE TO COLLECT URINE SAMPLE ,BUT PATIENT REFUSED BLOOD DRAW ,RN AWARE .
[2024-02-10 05:55] VITALS: BP 144/81; PULSE 69; RESP 18; TEMP 36.9; O2SAT 97
--- NOTE | 2024-02-10 06:11 | MHC.EDTECH ---
Addendum entered by Juan Ramon Palomo 02/10/24 06:33: PATIENT CHANGE HIS MIND ,BLOOD DRAW WAS OBTAIN AND SENT TO LAB . Original Note: PATIENT SLEPT ALL NIGHT ,PATIENT UP AT 0600 ,VITALS TAKEN ,URINE SIMPLE WAS COLLECTED EARLIER IN THE NIGHT AND SENT TO LAB ,PATIENT REQUESTED FOR HIS LABS TO BE DRAWN AROUND 12 NOON ,RN AWARE .
--- NOTE | 2024-02-10 06:30 | PC.NURSE ---
patient was initially difficult in engaging and resistive with care and instruction however as night progresses patient was more compliant with care, labs completed, medication complaint, in good behavioral control, VSS, will continue to monitor
[2024-02-10 06:35] LABS: MANUAL DIFF FLAG NO
[2024-02-10 06:38] LABS: Basophils Percent Auto 0.6 % (0-2); Eosinophils Absolute Auto 0.1 X10*3/uL (0.0-0.4); Eosinophils Percent Auto 1.7 % (0-4); Hemoglobin 15.5 g/dl (14.0-18.0); Imm Gran Abs Auto 0.01 X10*3/uL (0.00-0.03); Imm Gran Pct Auto 0.2 % (0.0-0.4); Lymphocytes Absolute Auto 1.5 X10*3/uL (1.2-4.9); Lymphocytes Percent Auto 23.6 % (20-40); Mean Corpuscular HGB Conc 33.7 g/dl (31.0-36.0); Mean Corpuscular Hemoglobin 29.4 pg (27.0-33.0); Mean Corpuscular Volume 87.3 fL (80.0-98.0); Mean Platelet Volume 11.3 fL (9.4-12.4); Monocytes Absolute Auto 0.5 X10*3/uL (0.1-1.2); Monocytes Percent Auto 8.5 % (2-11); Neutrophils Absolute Auto 4.1 x10*3/uL (2.0-8.3); Neutrophils Percent Auto 65.4 % (45-73); Platelet Count 272 X10*3/uL (160-400); Red Blood Count 5.27 X10*6/uL (4.60-5.80); White Blood Count 6.3 X10*3/uL (4.8-10.8)
[2024-02-10 06:49] LABS: Ethanol < 10 mg/dL
[2024-02-10 06:52] LABS: Alanine Aminotransferase 28 U/L (0-40); Albumin Level 4.3 g/dL (3.5-5.0); Alkaline Phosphatase 55 U/L (39-117); Anion Gap 12 (12-20); Aspartate Amino Transferase 32 U/L (5-37); Bilirubin Total 0.7 mg/dL (0.0-1.0); Blood Urea Nitrogen 14 mg/dL (9-16); Calcium 9.7 mg/dL (8.4-10.2); Carbon Dioxide 24 mmol/L (22-29); Chloride 106 mmol/L (96-108); Creatinine Clr Calc Pharmacy 114.9; Estimated Glomerular Filt Rate > 60; Glucose Random 94 mg/dL (60-115); Potassium 4.1 mmol/L (3.3-5.1); Sodium 138 mmol/L (135-145); Total Protein 7.6 g/dL (6.5-8.0)
--- NOTE | 2024-02-10 08:50 | PC.NURSE ---
Declined morning dose of vraylar stating he does not take meds and he does not need it, care team aware.
[2024-02-10] MEDS: Cariprazine HCl 3 MG CAPSULE PO (09:42)
--- NOTE | 2024-02-10 09:43 | PC.NURSE ---
With encouragement patient agreeable to take po med.
[2024-02-10 14:17] LABS: Appearance Urine Clear; Color Urine Yellow; Glucose Urine UA Negative (Negative); Leukocyte Esterase Urine Negative (Negative); Nitrite Urine Negative (Negative); PH 6.5 (5.0-9.0); Specific Gravity - Urine <= 1.005 (1.005-1.025); Urine Blood Negative (Negative); Urine Ketones Negative (Negative); Urine Protein Negative (Neg-Trace)
--- NOTE | 2024-02-10 14:19 | MHC.CARE ---
CARE Team received a call from [place], Jaja Ken [phone].? CARE Team had left a message for her earlier today. Pt is living in a transitional chcf in [place] while On is working on permanent stable housing for him.? [facility] Inpatient Social Work Team, please reach out to the following individuals prior to this patient?s discharge as he will lose housing after being gone for 72 hours and will need a new [employer] referral to get back into the transitional chcf: TAIL DOGGER ? Harshad Dunn ([phone]) HOUSING LIAISON ? Jasmin Cooper ([phone]) Ms. Rogers advised CARE Team that she would be calling the above individuals to advise them of pt?s status. Additional soldier on contact provided by pt?s Father:? Marcia ([phone])
[2024-02-10 14:31] LABS: COVID-19 Test Negative (Negative); IDNOW Serial# 9DB6401D
--- NOTE | 2024-02-10 15:52 | PC.NURSE ---
Report given to accepting unit
[2024-02-10 16:05] VITALS: BP 132/73; PULSE 75; TEMP 36.4; O2SAT 96
--- NOTE | 2024-02-10 16:57 | PC.ADMIT ---
Tres is a 28-year-old male admitted from [facility] to M3 on a CV for treatment of unspecified psychosis. Tox screen negative. Per crisis eval, pt was at the [email or web address] approaching female individuals and requesting a ride from them. When police arrived on scene, pt allegedly asked police to shoot him. Upon arrival to the unit, pt was pleasant and cooperative with skin check and vitals. Pt has a rash on dorsal area of right foot and opened blisters on his left foot, MD aware. Pt appeared suspicious and did not want to complete legal paperwork or answer admission assessment questions. Pt's mood was anxious with flat affect. Thought process linear and organized. Pt was otherwise pleasant and remained in behavioral control. Pt placed on 5 minute safety checks.
[2024-02-10 17:11] VITALS: BMI 32.5
--- NOTE | 2024-02-10 17:33 | PC.NURSE ---
pt refused flu vaccine
[2024-02-10 19:55] VITALS: BP 133/64; PULSE 85; RESP 18; TEMP 36.9; O2SAT 97
[2024-02-11 06:00] VITALS: BP 119/61; PULSE 70; RESP 16; TEMP 36.5; O2SAT 96
[2024-02-11] MEDS: Cariprazine HCl 3 MG CAPSULE PO (08:22)
[2024-02-11 09:13] LABS: Alanine Aminotransferase 36 U/L (0-40); Albumin Level 4.5 g/dL (3.5-5.0); Alkaline Phosphatase 56 U/L (39-117); Anion Gap 9 (12-20); Aspartate Amino Transferase 25 U/L (5-37); Bilirubin Total 0.6 mg/dL (0.0-1.0); Blood Urea Nitrogen 15 mg/dL (9-16); Carbon Dioxide 29 mmol/L (22-29); Chloride 105 mmol/L (96-108); Cholesterol 135 mg/dL (<200); Creatinine Clr Calc Pharmacy 137.8; Estimated Glomerular Filt Rate > 60; Glucose Fasting 104 mg/dL (60-99); HDL Cholesterol 36 mg/dL (>40); LDL Cholesterol Calculated 81 mg/dL (<100); Potassium 4.4 mmol/L (3.3-5.1); Sodium 139 mmol/L (135-145); Total Protein 7.7 g/dL (6.5-8.0); Triglycerides 92 mg/dL (<150)
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
[2024-02-11] MEDS: hydrOXYzine HCL 25 MG TABLET PO (15:44)
[2024-02-11 20:00] VITALS: BP 138/77; PULSE 88; RESP 18; TEMP 36.9; O2SAT 97
[2024-02-11] MEDS: traZODone HCL 50 MG TABLET PO (21:14)
[2024-02-11] MEDS: Perphenazine 4 MG TABLET PO (21:14)
[2024-02-12 07:00] VITALS: BMI 33.1
[2024-02-12 08:00] VITALS: BP 123/75; PULSE 77; RESP 14; TEMP 36.4; O2SAT 98
[2024-02-12] MEDS: Cariprazine HCl 3 MG CAPSULE PO (08:23)
[2024-02-12] MEDS: hydrOXYzine HCL 25 MG TABLET PO ×2 (13:20→21:39)
[2024-02-12] MEDS: Perphenazine 4 MG TABLET PO ×2 (13:20→21:39)
--- NOTE | 2024-02-12 15:36 | HO.PSYCHPN ---
Subjective Subjective Date of Service: 02/12/24 Reason For Visit: crisis Mental Status Exam Mental Status Exam Narrative: Patient engage cooperative casually dressed. Much less agitated had concerns regarding people's mood but no gross psychotic statements expressed. 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 Patient has been accepting Vraylar 3 mg he does state he feels better generally mood some appropriate apprehension about whether things are going to go okay with discharge planning denies SI HI impulse control seem much more intact thinking more linear Diagnostics Vital Signs (24Hr): Vital Signs - 24 hr 02/11/24 20:00 02/12/24 08:00 Temperature 98.5 F 97.5 F Pulse Rate 88 77 Respiratory Rate 18 14 Blood Pressure 138/77 123/75 Pulse Oximetry 97 98 Oxygen Delivery Method Room Air Room Air BMI result Body Mass Index 33.1 Labs 02/10/24 06:29 02/11/24 08:35 Labs: Laboratory Results - last 48 hr 02/11/24 08:35 Sodium 139 Potassium 4.4 Chloride 105 Carbon Dioxide 29 Anion Gap 9 L BUN 15 Creatinine 0.86 Estim Creat Clear Calc 137.8 Estimated GFR > 60 Fasting Glucose 104 H Calcium 10.0 Total Bilirubin 0.6 AST 25 ALT 36 Alkaline Phosphatase 56 Total Protein 7.7 Albumin 4.5 Triglycerides 92 Cholesterol 135 LDL Cholesterol, Calc 81 HDL Cholesterol 36 L Medications Medications Current Medications Acetaminophen (Acetaminophen 325 Mg Tablet) 650 mg PO Q6H PRN PRN Reason: Headache/Pain Mild Scale (1-3) Al Hydroxide/Mg Hydroxide (Magnesium Hydrox/Alum Hydrox 30 Ml Oral.Susp) 30 ml PO Q6H PRN PRN Reason: Heartburn/Nausea Cariprazine (Cariprazine Hcl 3 Mg Capsule) 3 mg PO DAILY [facility] Last Admin: 02/12/24 08:23 Dose: 3 mg Hydroxyzine HCl (Hydroxyzine Hcl 25 Mg Tablet) 25 mg PO Q6H PRN PRN Reason: Anxiety Last Admin: 02/12/24 13:20 Dose: 25 mg Magnesium Hydroxide (Milk Of Magnesia 30 Ml Oral.Susp) 30 ml PO DAILY PRN PRN Reason: Constipation Nicotine (Nicotine 21 Mg Patch.Td24) 21 mg TRANSDERMA DAILY [facility] Last Admin: 02/12/24 08:25 Dose: Not Given Nicotine Polacrilex (Nicotine Polacrilex 2 Mg Gum) 4 mg BUCCAL Q2H PRN PRN Reason: Nicotine Cravings Perphenazine (Perphenazine 4 Mg Tablet) 4 mg PO Q4H PRN PRN Reason: anxiety/restlessness Last Admin: 02/12/24 13:20 Dose: 4 mg Trazodone HCl (Trazodone Hcl 50 Mg Tablet) 50 mg PO BEDTIME MRX1 PRN PRN Reason: Insomnia Last Admin: 02/11/24 21:14 Dose: 50 mg Allergies Allergies Allergy/AdvReac Type Severity Reaction Status Date / Time No Known Allergies Allergy Verified 02/09/24 22:37 Assessment & Plan Assessment & Plan (1) Schizophrenia: Status: Acute Code(s): F20.9 - Schizophrenia, unspecified Plan Patient did put in 3 day he understands horton warning. Note read from the care team who had been in touch with soldier on who had been trying to set up housing and treatment patient did place himself in dangerous position with the police denies active SI or HI history of noncompliance evaluate need for section 7 Reason for continued inpatient stay Substantial Risk for: inability to function and rapid decompensation Time Spent With Patient Time: Total time managing care of this patient today ____ minutes.
[2024-02-12 19:20] VITALS: PULSE 83; RESP 18; TEMP 36.9; O2SAT 96
[2024-02-12] MEDS: traZODone HCL 50 MG TABLET PO (21:39)
[2024-02-13 07:28] VITALS: BP 114/61; PULSE 76; RESP 16; TEMP 36.8; O2SAT 95
[2024-02-13] MEDS: Cariprazine HCl 3 MG CAPSULE PO (09:06)
[2024-02-13 20:00] VITALS: BP 139/78; PULSE 81; RESP 16; TEMP 36.9; O2SAT 16
--- NOTE | 2024-02-13 23:04 | HO.PSYCHPN ---
Subjective Subjective Date of Service: 02/13/24 Reason For Visit: crisis Subjective Notes: Conditional Voluntary and 3 Day Interim History: Patient seen psychiatric follow-up patient tending to be suspicious discussed saw withdrawn stating he had been irritable reactive argumentative at [facility] patient has been taking Vraylar 3 mg Patient became defensive stating no one is trying to help him did state he was agreeable to [place] services Mental Status Exam Mental Status Exam Narrative: Patient casually dressed becomes defensive and reactive fairly quickly patient unable to take in feedback regarding soldier on and how he had behaved become somewhat more activated suspicious of motives stating known is helping him he has been taking medication he does ask for help with discharge planning but is not clear exactly what he is looking for. Becomes very upset angry at any indication that pulse had any contact with his parents and I discussed with him I have not had any contact denies SI or HI Diagnostics Vital Signs (24Hr): Vital Signs - 24 hr 02/13/24 07:28 02/13/24 20:00 Temperature 98.2 F 98.4 F Pulse Rate 76 81 Respiratory Rate 16 16 Blood Pressure 114/61 139/78 Pulse Oximetry 95 16 L Oxygen Delivery Method Room Air Room Air BMI result Body Mass Index 33.1 Labs 02/10/24 06:29 02/11/24 08:35 Medications Medications Current Medications Acetaminophen (Acetaminophen 325 Mg Tablet) 650 mg PO Q6H PRN PRN Reason: Headache/Pain Mild Scale (1-3) Al Hydroxide/Mg Hydroxide (Magnesium Hydrox/Alum Hydrox 30 Ml Oral.Susp) 30 ml PO Q6H PRN PRN Reason: Heartburn/Nausea Cariprazine (Cariprazine Hcl 3 Mg Capsule) 3 mg PO DAILY [facility] Last Admin: 02/13/24 09:06 Dose: 3 mg Hydroxyzine HCl (Hydroxyzine Hcl 25 Mg Tablet) 25 mg PO Q6H PRN PRN Reason: Anxiety Last Admin: 02/12/24 21:39 Dose: 25 mg Magnesium Hydroxide (Milk Of Magnesia 30 Ml Oral.Susp) 30 ml PO DAILY PRN PRN Reason: Constipation Nicotine (Nicotine 21 Mg Patch.Td24) 21 mg TRANSDERMA DAILY [facility] Last Admin: 02/13/24 10:10 Dose: Not Given Nicotine Polacrilex (Nicotine Polacrilex 2 Mg Gum) 4 mg BUCCAL Q2H PRN PRN Reason: Nicotine Cravings Perphenazine (Perphenazine 4 Mg Tablet) 4 mg PO Q4H PRN PRN Reason: anxiety/restlessness Last Admin: 02/12/24 21:39 Dose: 4 mg Trazodone HCl (Trazodone Hcl 50 Mg Tablet) 50 mg PO BEDTIME MRX1 PRN PRN Reason: Insomnia Last Admin: 02/12/24 21:39 Dose: 50 mg Allergies Allergies Allergy/AdvReac Type Severity Reaction Status Date / Time No Known Allergies Allergy Verified 02/09/24 22:37 Assessment & Plan Assessment & Plan (1) Schizophrenia: Status: Acute Code(s): F20.9 - Schizophrenia, unspecified Plan Patient did put in 3 day he understands horton warning. Note read from the care team who had been in touch with soldier on who had been trying to set up housing and treatment patient did place himself in dangerous position with the police denies active SI or HI history of noncompliance evaluate need for section 7 02/13/2024 Continue Vraylar encourage cooperation with discharge planning patient denies SI or HI has difficulty understanding how his behavior affects people's response to him cont vraylar 3 mg on 3 day trying to determine ? risks and need to file Patient educated on: diagnosis and medication risk/benefits Informed Consent: further education needed Reason for continued inpatient stay Substantial Risk for: inability to function and rapid decompensation Time Spent With Patient Time: Total time managing care of this patient today __30__ minutes.
[2024-02-14 07:15] VITALS: BP 107/72; PULSE 101; RESP 14; TEMP 36.9; O2SAT 96
[2024-02-14] MEDS: Cariprazine HCl 3 MG CAPSULE PO (08:14)
--- NOTE | 2024-02-14 08:44 | HO.PSYCHPN ---
Subjective Subjective Date of Service: 02/14/24 Reason For Visit: crisis Subjective Notes: Conditional Voluntary and 3 Day Interim History: Patient was seen and discussed in rounds today. Records and plans were reviewed. He continues to be anxious and somewhat paranoid. Attending some groups. Medication compliant. No episodes of anger. Social with peers. Attending no groups. Eating and sleeping adequately. No safety concerns and his 5 minute checks were changed to 15 minutes. No complaints or side effects. Review of Systems Review of Systems Yes all other systems are reviewed and are negative Mental Status Exam Mental Status Exam Narrative: In today's visit he is alert, oriented and mostly pleasant. Speech is normal. Good eye contact. Affect is appropriate with no overt anger. No SI. Cognitively is grossly intact. Judgment is intact Diagnostics Vital Signs (24Hr): Vital Signs - 24 hr 02/13/24 20:00 Temperature 98.4 F Pulse Rate 81 Respiratory Rate 16 Blood Pressure 139/78 Pulse Oximetry 16 L Oxygen Delivery Method Room Air BMI result Body Mass Index 33.1 Labs 02/10/24 06:29 02/11/24 08:35 Medications Medications Current Medications Acetaminophen (Acetaminophen 325 Mg Tablet) 650 mg PO Q6H PRN PRN Reason: Headache/Pain Mild Scale (1-3) Al Hydroxide/Mg Hydroxide (Magnesium Hydrox/Alum Hydrox 30 Ml Oral.Susp) 30 ml PO Q6H PRN PRN Reason: Heartburn/Nausea Cariprazine (Cariprazine Hcl 3 Mg Capsule) 3 mg PO DAILY [facility] Last Admin: 02/14/24 08:14 Dose: 3 mg Hydroxyzine HCl (Hydroxyzine Hcl 25 Mg Tablet) 25 mg PO Q6H PRN PRN Reason: Anxiety Last Admin: 02/12/24 21:39 Dose: 25 mg Magnesium Hydroxide (Milk Of Magnesia 30 Ml Oral.Susp) 30 ml PO DAILY PRN PRN Reason: Constipation Nicotine (Nicotine 21 Mg Patch.Td24) 21 mg TRANSDERMA DAILY [facility] Last Admin: 02/14/24 08:15 Dose: Not Given Nicotine Polacrilex (Nicotine Polacrilex 2 Mg Gum) 4 mg BUCCAL Q2H PRN PRN Reason: Nicotine Cravings Perphenazine (Perphenazine 4 Mg Tablet) 4 mg PO Q4H PRN PRN Reason: anxiety/restlessness Last Admin: 02/12/24 21:39 Dose: 4 mg Trazodone HCl (Trazodone Hcl 50 Mg Tablet) 50 mg PO BEDTIME MRX1 PRN PRN Reason: Insomnia Last Admin: 02/12/24 21:39 Dose: 50 mg Allergies Allergies Allergy/AdvReac Type Severity Reaction Status Date / Time No Known Allergies Allergy Verified 02/09/24 22:37 Assessment & Plan Assessment & Plan (1) Schizophrenia: Status: Acute Code(s): F20.9 - Schizophrenia, unspecified Plan Patient did put in 3 day he understands horton warning. Note read from the care team who had been in touch with soldier on who had been trying to set up housing and treatment patient did place himself in dangerous position with the police denies active SI or HI history of noncompliance evaluate need for section 7 02/13/2024 Continue Vraylar encourage cooperation with discharge planning patient denies SI or HI has difficulty understanding how his behavior affects people's response to him cont vraylar 3 mg on 3 day trying to determine ? risks and need to file 02/14/2024: Continue current regimen and plans Reason for continued inpatient stay Substantial Risk for: med/psych decompensation Time Spent With Patient Time: Total time managing care of this patient today ____ minutes.
--- NOTE | 2024-02-14 18:43 | PC.NURSE ---
Met with patient, believes 3 female peers are playing mind games with him. States he is done . Reminded patient of keeping good boundaries with peers. Observed by staff earlier in day to pick up operator female peer and twirl her around. Reminded not to touch peers. Believes he is being accused by female peers stating they want me to do things . States he is going to stay visible in common areas, and will let staff know when he is going to his room. I don't need any of that shit .
[2024-02-14] MEDS: Perphenazine 4 MG TABLET PO (18:58)
[2024-02-14] MEDS: hydrOXYzine HCL 25 MG TABLET PO (18:58)
[2024-02-14 20:00] VITALS: BP 145/79; PULSE 80; RESP 16; TEMP 37.1; O2SAT 97
[2024-02-14] MEDS: Acetaminophen 325 MG TABLET 650 MG PO (22:39)
--- NOTE | 2024-02-14 23:01 | PC.NURSE ---
Tres was given Tylenol PO prn for foot pain 01/03
[2024-02-15] MEDS: Cariprazine HCl 3 MG CAPSULE PO (08:19)
--- NOTE | 2024-02-15 09:24 | HO.PSYCHPN ---
Subjective Subjective Date of Service: 02/15/24 Reason For Visit: crisis Subjective Notes: Conditional Voluntary and 3 Day Interim History: Patient was seen and discussed in rounds today. Records and plans were reviewed. He has been having some problems with boundary issues but is able to accept guidance and abide by it. He is having a lot of dryness in his feet with cracks and Eucerin cream is ordered. He continues to have paranoid ideations and some delusions. Eating and sleeping adequately. No other changes were made today Review of Systems Review of Systems Yes all other systems are reviewed and are negative Mental Status Exam Mental Status Exam Narrative: In today's visit he is alert, oriented and mostly pleasant. Speech is normal. Good eye contact. Affect is appropriate with no overt anger. No SI. Cognitively is grossly intact. Judgment is intact Diagnostics Vital Signs (24Hr): Vital Signs - 24 hr 02/14/24 20:00 Temperature 98.7 F Pulse Rate 80 Respiratory Rate 16 Blood Pressure 145/79 H Pulse Oximetry 97 Oxygen Delivery Method Room Air BMI result Body Mass Index 33.1 Labs 02/10/24 06:29 02/11/24 08:35 Medications Medications Current Medications Acetaminophen (Acetaminophen 325 Mg Tablet) 650 mg PO Q6H PRN PRN Reason: Headache/Pain Mild Scale (1-3) Last Admin: 02/14/24 22:39 Dose: 650 mg Al Hydroxide/Mg Hydroxide (Magnesium Hydrox/Alum Hydrox 30 Ml Oral.Susp) 30 ml PO Q6H PRN PRN Reason: Heartburn/Nausea Cariprazine (Cariprazine Hcl 3 Mg Capsule) 3 mg PO DAILY [facility] Last Admin: 02/15/24 08:19 Dose: 3 mg Hydroxyzine HCl (Hydroxyzine Hcl 25 Mg Tablet) 25 mg PO Q6H PRN PRN Reason: Anxiety Last Admin: 02/14/24 18:58 Dose: 25 mg Magnesium Hydroxide (Milk Of Magnesia 30 Ml Oral.Susp) 30 ml PO DAILY PRN PRN Reason: Constipation Nicotine (Nicotine 21 Mg Patch.Td24) 21 mg TRANSDERMA DAILY [facility] Last Admin: 02/15/24 08:20 Dose: Not Given Nicotine Polacrilex (Nicotine Polacrilex 2 Mg Gum) 4 mg BUCCAL Q2H PRN PRN Reason: Nicotine Cravings Perphenazine (Perphenazine 4 Mg Tablet) 4 mg PO Q4H PRN PRN Reason: anxiety/restlessness Last Admin: 02/14/24 18:58 Dose: 4 mg Trazodone HCl (Trazodone Hcl 50 Mg Tablet) 50 mg PO BEDTIME MRX1 PRN PRN Reason: Insomnia Last Admin: 02/12/24 21:39 Dose: 50 mg Allergies Allergies Allergy/AdvReac Type Severity Reaction Status Date / Time No Known Allergies Allergy Verified 02/09/24 22:37 Assessment & Plan Assessment & Plan (1) Schizophrenia: Status: Acute Code(s): F20.9 - Schizophrenia, unspecified Plan Patient did put in 3 day he understands horton warning. Note read from the care team who had been in touch with soldier on who had been trying to set up housing and treatment patient did place himself in dangerous position with the police denies active SI or HI history of noncompliance evaluate need for section 7 02/13/2024 Continue Vraylar encourage cooperation with discharge planning patient denies SI or HI has difficulty understanding how his behavior affects people's response to him cont vraylar 3 mg on 3 day trying to determine ? risks and need to file 02/14/2024: Continue current regimen and plans 02/15/2024: Continue current regimen and plans Reason for continued inpatient stay Substantial Risk for: med/psych decompensation Time Spent With Patient Time: Total time managing care of this patient today ____ minutes.
[2024-02-15 20:05] VITALS: BP 127/68; PULSE 92; RESP 16; TEMP 36.7; O2SAT 97
[2024-02-15] MEDS: Mineral Oil/Petrolatum,White 106 GM Tube 1 APPL TOPICAL (20:12)
[2024-02-16 07:15] VITALS: BP 131/59; PULSE 74; RESP 16; TEMP 36.7; O2SAT 96
[2024-02-16] MEDS: Cariprazine HCl 3 MG CAPSULE PO (08:27)
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
--- NOTE | 2024-02-16 13:22 | PC.NURSE ---
Patient engages easily. Reports he is ready to go however unsure where he is going to end up in a hotel or sleeping on the street . Denies feeling anxious or depressed. Denies SI/HI plan or intent at this time. Denies perceptual disturbances, denies A/V hallucinations. Discharge paperwork reviewed with patient reports understanding. Reviewed medications with patient reports understanding. Patient to follow up at [facility] for services, PCP to call patient with appointment. All belongings taken with patient. Crisis numbers provided to patient.
== END 2024-02-16 12:30 | disposition home or self-care (01) | DRG 750 ==
LOC: HO.ED 02-10 02:04 → HO.PADLT16 02-10 15:20
PROVIDERS: Emergency Medicine; Admitting Provider Registered Nurse; Emergency Provider Emergency Medicine; PCP Pediatrics; Visit Provider Psychiatry & Neurology Psychiatry
DX: F20.0 Paranoid schizophrenia (principal); Z20.822 Contact with and (suspected) exposure to COVID-19
CPT/HCPCS: 36415; 80053; 80061; 80307; 81003; 85025; 87635; 93005; 99285; S9485

== ENCOUNTER → 2024-02-10 13:59 | Outpatient (BNV) | payer OTHER, SELFPAY | PROVIDERS: Admitting Provider Registered Nurse; Emergency Provider Emergency Medicine; PCP Pediatrics; Visit Provider Internal Medicine | DX: I45.81 Long QT syndrome (principal) | CPT/HCPCS: 93010 ==

== ENCOUNTER → 2024-02-10 15:18 | Outpatient (BNV) | payer OTHER, SELFPAY | PROVIDERS: Admitting Provider Registered Nurse; Emergency Provider Emergency Medicine; PCP Pediatrics; Visit Provider Psychiatry & Neurology Psychiatry | DX: F20.9 Schizophrenia, unspecified (principal) | CPT/HCPCS: 90792; 99232 ==

== ENCOUNTER → 2024-02-10 15:18 | Outpatient (BNV) | payer OTHER, SELFPAY | PROVIDERS: Admitting Provider Registered Nurse; Emergency Provider Emergency Medicine; PCP Pediatrics; Visit Provider Psychiatry & Neurology Psychiatry | DX: F20.9 Schizophrenia, unspecified (principal) | CPT/HCPCS: 99231; 99232; 99239 ==

== ENCOUNTER 2024-03-03 03:52 | Emergency (ER) | payer OTHER, SELFPAY ==
[2024-03-03] VITALS (7 sets, daily range): BP systolic 100–148; BP diastolic 54–91; PULSE 66–85; RESP 12–19; TEMP 36.4–36.8; O2SAT 96–99; BMI 35.2
--- NOTE | 2024-03-03 04:24 | MHC.EDTECH ---
Addendum entered by Kristie Beltran, Lio 03/03/24 04:42: T/w noticed Pt had bracelet and necklace on, which were placed with his belongings in the pod Original Note: Belongings placed in pod laundry closet by security.
[2024-03-03 04:32] LABS: Appearance Urine Clear; Color Urine Yellow; Glucose Urine UA Negative (Negative); Leukocyte Esterase Urine Negative (Negative); Nitrite Urine Negative (Negative); Specific Gravity - Urine 1.015 (1.005-1.025); Urine Blood Negative (Negative); Urine Ketones Negative (Negative); Urine Protein Negative (Neg-Trace)
[2024-03-03 04:41] LABS: Hematocrit 43.1 % (42.0-52.0); Hemoglobin 14.3 g/dl (14.0-18.0); Mean Corpuscular HGB Conc 33.2 g/dl (31.0-36.0); Mean Corpuscular Hemoglobin 28.9 pg (27.0-33.0); Mean Corpuscular Volume 87.2 fL (80.0-98.0); Mean Platelet Volume 10.8 fL (9.4-12.4); Platelet Count 255 X10*3/uL (160-400); Red Blood Count 4.94 X10*6/uL (4.60-5.80); Red Cell Distribution Width 12.9 % (11.0-16.0); White Blood Count 6.8 X10*3/uL (4.8-10.8)
[2024-03-03 04:45] LABS: Amphetamine Screen Urine Not Detected (Not Detect); Barbiturates, Urine Not Detected (Not Detect); Benzodiazepines Screen Urine Not Detected (Not Detect); Buprenorphine Scr Not Detected (Not Detect); Cannabinoid Screen Urine Not Detected (Not Detect); Cocaine Screen Urine Not Detected (Not Detect); Fentanyl, urine Not Detected (Not Detect); Methadone Screen, Urine Not Detected (Not Detect); Opiate Screen Urine Not Detected (Not Detect); Oxycodone Screen Urine Not Detected (Not Detect); Phencyclidine Screen Urine Not Detected (Not Detect)
[2024-03-03 04:55] LABS: Alanine Aminotransferase 30 U/L (0-40); Alkaline Phosphatase 45 U/L (39-117); Anion Gap 12 (12-20); Aspartate Amino Transferase 31 U/L (5-37); Bilirubin Total 0.3 mg/dL (0.0-1.0); Blood Urea Nitrogen 15 mg/dL (9-16); Calcium 9.5 mg/dL (8.4-10.2); Carbon Dioxide 25 mmol/L (22-29); Chloride 106 mmol/L (96-108); Creatinine Clr Calc Pharmacy 151.7; Estimated Glomerular Filt Rate > 60; Glucose Random 97 mg/dL (60-115); Potassium 3.9 mmol/L (3.3-5.1); Sodium 139 mmol/L (135-145)
[2024-03-03 04:56] LABS: Ethanol < 10 mg/dL; Salicylate < 5.0 mg/dL (15-30)
--- NOTE | 2024-03-03 05:16 | ED_ITS ---
HPI - Psych General Chief Complaint: Psychiatric Symptoms Stated Complaint: crisis Time Seen by Provider: 03/03/24 04:38 Source: patient Mode of arrival: EMS History of Present Illness HPI Narrative: 28-year-old male who reports he is homeless, has a history of depression and has previously had a therapist and been on medication but he disagrees adamantly about his diagnosis of bipolar to/schizophrenia. Patient states he has had increasing feelings of depression but denies AVH/SI/HI. Related Data Previous Rx's ?Medication ?Instructions ?Recorded cariprazine 3 mg capsule (Vraylar) 3 mg PO DAILY 30 days #30 caps 02/16/24 white petrolatum-mineral oil 1 appl topical BID #0 grams 02/16/24 topical cream (Dermacerin topical cream) Allergies Allergy/AdvReac Type Severity Reaction Status Date / Time No Known Allergies Allergy Verified 03/03/24 04:14 Review of Systems 2 Review of Systems: Pertinent positives and negatives as stated in HPI PMFSH Past Medical History Source: nursing notes reviewed Medical History Delusions Social History Social History Household Members: Unknown / Unable to assess Housing: Homeless Unable to assess alcohol history related to: Refusing to respond Patient Tobacco Use Status: Refuse Tobacco use screen Advance Directives: No Do you have a plan to hurt others: No Plan service: Yes ([id number]) Sexual orientation: Straight/Heterosexual Physical Exam 2 Vital Signs: Vital Signs: Last Vital Signs Temp 97.5 F 03/03/24 04:26 Pulse 73 03/03/24 04:26 Resp 16 03/03/24 04:26 BP 131/74 03/03/24 04:26 Pulse Ox 97 03/03/24 04:26 O2 Del Method Room Air 03/03/24 04:26 BMI result Body Mass Index 35.2 VITAL SIGNS: Reviewed. GENERAL: Well developed, well nourished, in no acute distress. HEAD: Normocephalic/atraumatic EYES: PERRLA, EOMI EARS: Ext canals without abnormality NOSE: Nares patent bilateral OROPHARYNX: no oral lesions noted, posterior pharynx clear NECK: Supple, no adenopathy LUNGS: Normal breath sounds. No adventitious sounds or accessory muscle use. SpO2<97> CARDIOVASCULAR: Regular rate and rhythm without noted murmurs ABDOMEN: Soft, non-tender, non-distended with bowel sounds. MUSCULOSKELETAL: No tenderness, deformities, or effusions noted on gross inspection. EXTREMITIES: No cyanosis, clubbing or edema. SKIN: Inspection of the skin reveals no rashes NEUROLOGIC: Alert and oriented x 4. Strength and sensation to light touch were grossly intact x 4, cranial nerves 2-12 are grossly intact. Medical Decision Making Medical Decision Making [facility] Narrative: 28-year-old male with history and clinical presentation of depression, will evaluate for underlying medical etiologies for patient's presentation. I reviewed all investigations and hematologic indices are grossly within normal limits, there are no derangements. Chemistry indices are grossly within normal limits and they are without derangement. Urinalysis negative for UTI or hematuria. UDS is negative for drugs or alcohol and salicylate is undetectable. Patient is otherwise medically cleared for further evaluation by the care team. Patient placed in physician observation because the patient needed more time for evaluation by the care team. At the time observation was started the patient's vital signs were stable, patient is alert and oriented, neuro: Nonfocal, CV RRR, lungs clear Differential Diagnosis Differential Diagnoses: The differential diagnosis associated with the presentation includes Please see the discussion above Admission/Observation Consideration of admission/observation: Escalation of care including admission/observation considered Please see the discussion above Lab Data [facility] Lab Attestation statement: I reviewed the patient's lab results. Please see the discussion above 03/03/24 04:36 03/03/24 04:36 Labs: Lab Results 03/03/24 03/03/24 Range/Units 04:20 04:36 WBC 6.8 (4.8-10.8) X10*3/uL RBC 4.94 (4.60-5.80) X10*6/uL Hgb 14.3 (14.0-18.0) g/dl Hct 43.1 (42.0-52.0) % MCV 87.2 (80.0-98.0) fL MCH 28.9 (27.0-33.0) pg MCHC 33.2 (31.0-36.0) g/dl RDW 12.9 (11.0-16.0) % Plt Count 255 (160-400) X10*3/uL MPV 10.8 (9.4-12.4) fL Absolute Nucleated RBC 0.000 (0.0-0.012) X10*3/uL Nucleated RBC % (auto) 0.0 (0.0-0.2) /100WBC Sodium 139 (135-145) mmol/L Potassium 3.9 (3.3-5.1) mmol/L Chloride 106 (96-108) mmol/L Carbon Dioxide 25 (22-29) mmol/L Anion Gap 12 (12-20) BUN 15 (9-16) mg/dL Creatinine 0.84 (0.5-1.4) mg/dL Estim Creat Clear Calc 151.7 Estimated GFR > 60 Random Glucose 97 (60-115) mg/dL Calcium 9.5 (8.4-10.2) mg/dL Total Bilirubin 0.3 (0.0-1.0) mg/dL AST 31 (5-37) U/L ALT 30 (0-40) U/L Alkaline Phosphatase 45 (39-117) U/L Total Protein 7.0 (6.5-8.0) g/dL Albumin 4.0 (3.5-5.0) g/dL Urine Color Yellow Urine Appearance Clear Urine pH 6.0 (5.0-9.0) Ur Specific [place] 1.015 (1.005-1.025) Urine Protein Negative (Neg-Trace) mg/dL Urine Glucose (UA) Negative (Negative) mg/dL Urine Ketones Negative (Negative) mg/dL Urine Blood Negative (Negative) Urine Nitrite Negative (Negative) Ur Leukocyte Esterase Negative (Negative) Salicylates < 5.0 L (15-30) mg/dL Urine Opiates Screen Not Detected (Not Detect) Ur Buprenorphine Scrn Not Detected (Not Detect) ng/mL Ur Oxycodone Screen Not Detected (Not Detect) ng/mL Urine Methadone Screen Not Detected (Not Detect) ng/mL Urine Fentanyl Screen Not Detected (Not Detect) Ur Barbiturates Screen Not Detected (Not Detect) Ur Phencyclidine Scrn Not Detected (Not Detect) Ur Amphetamines Screen Not Detected (Not Detect) U Benzodiazepines Scrn Not Detected (Not Detect) Urine Cocaine Screen Not Detected (Not Detect) U Marijuana (THC) Screen Not Detected (Not Detect) Ethyl Alcohol < 10 mg/dL Critical Care Time Critical Care Time Critical Care Time: Yes Total Critical Care Time: 30 Attestation: I personally attest to this time spent taking care of the patient. Discharge Plan Discharge Clinical Impression: Depression Patient Disposition: Still a Patient Prescriptions: No Action Dermacerin Cream 1 appl topical BID Qty: 0 0RF Protocol: Apply to: Apply to: feet Vraylar 3 mg capsule 3 mg PO DAILY 30 Days Qty: 30 0RF Print Language: Sammarinese
--- NOTE | 2024-03-03 08:17 | PC.NURSE ---
PT A/O X 4 NO SOB/RAFI NOTED SPEAKS IN FULL SENTENCES. PT AMB (I) GAIT STEADY. PT DENIES ANY SI/HI/HALLUCINATION.. PT STATES THAT HE IS DEPRESSED AND THAT TODAY IS HIS 4TH DAY OF BEING HOMELESS. PT HAS 15 MINUTE CHECKS. PT AWARE OF PLAN OF CARE. WILL CONTINUE TO MONITOR.
--- NOTE | 2024-03-03 10:32 | MHC.EDTECH ---
this patient went into the POD to take a shower. accompanied by krystian.
--- NOTE | 2024-03-03 10:51 | PC.NURSE ---
PT SEEN BY CARE TEAM, AWARE OF PLAN OF CARE.
--- NOTE | 2024-03-03 11:07 | MHC.CARE ---
[facility] Application and supporting documentation sent
--- NOTE | 2024-03-03 11:55 | MHC.CARE ---
[facility] called CARE Team. Pt's application has been rejected. Re: They are not professionally equipped to help him.
--- NOTE | 2024-03-03 12:48 | MHC.CARE ---
CARE Team attempted to make contact with pt, who appeared to be sleeping although his name was called out and he was shaken by his PO. CARE Team was present to discuss his application to [facility] being rejected and to discuss other options.
--- NOTE | 2024-03-03 14:17 | MHC.CARE ---
Pt has been referred to [facility] and [facility]
--- NOTE | 2024-03-03 14:32 | MHC.CARE ---
Pt has been referred to [facility] for services
--- NOTE | 2024-03-03 20:34 | PC.NURSE ---
assumed care , pt reports does not take any medications at home
--- NOTE | 2024-03-03 21:36 | MHC.CARE ---
Referrals were faxed and activated to [facility] and [facility]. Pt completed a phone screening. Both referrals are currently in review and CARE Team will follow up on the status of them in the morning.
[2024-03-04 05:50] VITALS: BP 123/57; PULSE 73; RESP 17; TEMP 36.8; O2SAT 96
[2024-03-04 10:00] VITALS: BP 118/87; PULSE 73; RESP 18; TEMP 36.7; O2SAT 97
[2024-03-04 13:19] VITALS: BP 118/87; PULSE 73; RESP 18; TEMP 36.7; O2SAT 97
== END 2024-03-04 13:33 | disposition other institution (70) ==
PROVIDERS: Student in an Organized Health Care Education/Training Program; Emergency Provider Emergency Medicine
DX: F33.1 Major depressive disorder, recurrent, moderate (principal); Z59.00 Homelessness unspecified; Z79.899 Other long term (current) drug therapy
CPT/HCPCS: 36415; 80053; 80179; 80307; 81003; 85027; 99285; S9485